=== PATIENT | female | born 1960 | race Caucasian/White ===

== ENCOUNTER → 2017-12-21 06:44 | Outpatient (CLI) | payer MEDICARE, SELFPAY ==
--- NOTE | 2017-12-21 16:56 | STRESSREP ---
Stress Test Report Pharmacologic myocardial perfusion stress test. 57-year-old lady with a history of chest pain. Stress protocol: Resting EKG demonstrates sinus bradycardia with a rate of 51 bpm. Normal intervals and noted resting blood pressure is 140/86 centimeters of mercury. 0.4 mg of regadenoson was infused per usual protocol followed Intravenous saline flush injection. Continuous EKG monitoring was performed. The maximum heart rate attained was 58 bpm which was 35% of maximum predicted heart rate the maximum workload attained was 1 metabolic equivalent. At rest there were no ST or T-wave changes noted to suggest abnormal flow reserve at peak infusion no ST or T-wave changes were noted to suggest abnormal flow reserve. The resting blood pressure is 140/86 with a final blood pressure of the same. Myocardial perfusion protocol. 14.3 mCi of technetium 99m sestamibi was injected at rest. 0.4 mg of regadenoson was infused per usual protocol. At peak infusion 44.8 mCi of technetium 99m sestamibi was injected. Stress images were obtained stress and rest images were reconstructed and compared in the short axis vertical long and horizontal long axis. Gated images were also obtained. Perfusion SPECT analysis: Review of the stress images demonstrate normal uptake of tracer noted in all areas of the myocardium the resting images similarly demonstrate normal uptake of tracer noted in all areas of the myocardium. No areas of reversibility are noted suggest ischemia no previous infarct is noted. Gated SPECT analysis: The gated ejection fraction is noted to be 65%. Normal pharmacologic myocardial perfusion stress test. Preserved ejection fraction.
== END ==
PROVIDERS: Family Provider Family Medicine; PCP Family Medicine; Visit Provider Internal Medicine Cardiovascular Disease
DX: I25.10 Atherosclerotic heart disease of native coronary artery without angina pectoris (principal)
CPT/HCPCS: 78452; 93017; A9500; A4216; J2785

== ENCOUNTER 2018-04-24 19:49 | Inpatient (IN) | payer MEDICARE, SELFPAY ==
[2018-04-24] VITALS (7 sets, daily range): BP systolic 159–216; BP diastolic 95–140; PULSE 67–89; RESP 12–44; TEMP 36.4–37.1; O2SAT 86–99; BMI 38.4
--- NOTE | 2018-04-24 20:16 | ED.RN ---
[employer] called for ekg, pulled old ekg's for
--- NOTE | 2018-04-24 20:45 | EKG12_ITS ---
Test Reason : CP Blood Pressure : / mmHG Vent. Rate : 084 BPM Atrial Rate : 084 BPM P-R Int : 148 ms QRS Dur : 104 ms QT Int : 386 ms P-R-T Axes : 050 006 054 degrees QTc Int : 456 ms Normal sinus rhythm Nonspecific ST abnormality Abnormal ECG Confirmed by ARIANA NICHOLE, ALEXIA ([id number]), loan expeditor MAGY RICHARDS ([id number]) on 04/27/2018 9:52:05 AM Referred By: JULIO Confirmed By:ALEXIA LANE MD
--- NOTE | 2018-04-24 21:15 | RAD_ITS ---
STUDY: X-RAY CHEST REASON FOR EXAM: Female, 57 years old. Shortness of breath TECHNIQUE: Single view of the chest was obtained COMPARISON: October 05, 2017 chest radiograph FINDINGS: Bilateral pulmonary edema with cardiomegaly noted. No pneumothorax. No pleural effusions aortic tortuosity.. No lung consolidation. Osseous structures demonstrate no acute abnormalities IMPRESSION: Cardiomegaly with bilateral interstitial pulmonary edema Electronically Signed: Carlos Sumner, at 21:29 EDT Tel , Service support , RAD/Chest 1 View (Portable)
[2018-04-24] MEDS: MethylPREDNISolone 125 MG/2 ML Vial IV (21:16)
[2018-04-24] MEDS: Ipratropium/Albuterol Sulfate 3 ML AMPUL.NEB INHALATION (21:17)
[2018-04-24] MEDS: Albuterol 2.5 MG/3 ML VIAL.NEB. INHALATION ×3 (21:17→23:00)
[2018-04-24 21:31] LABS: Allen Test POS; Base Excess -6 mmol/L (-2 to +2); Bicarbonate 20.3 mmol/L (22-26); Blood Gas Specimen Type ART; EPAP 6; FI02 60; IPAP 14; PO2 224 mmHG (75-100); RR 12; SITE R Radial; SO2 100 % (95-99); Time Given 2115; Total Carbon Dioxide 22 mmol/L; pCO2 41.6 mmHg (35-45)
[2018-04-24 21:40] LABS: Absolute Neutrophil Count 6.6 X10^3/uL (2.0-7.7); Basophil# 0.01 X10^3/uL; Basophil% 0.1 % (0-1); Eosinophils% 1.2 % (0-5); Hematocrit 40.3 % (37-47); Hemoglobin 14.2 g/dl (12.0-15.0); Lymphocyte % 15.2 % (19-41); Mean Corp Hgb Conc 35.2 g/gl (32-36); Mean Corpuscular Hgb 33.6 pg (27.0-32.0); Mean Corpuscular Volume 95.3 fL (81-99); Neutrophil # 6.55 X10^3/uL (2.7-7.7); Neutrophil % 76.3 % (47-70); Platelet Count 105 K/mm3 (150-450); RBC Distribution Width CV 14.9 % (11.6-14.6); RBC Distribution Width SD 52.2 fl (35.1-43.9); Red Blood Count 4.23 M/mm3 (4.2-5.4); White Blood Count 8.6 K/mm3 (4.4-11.0)
[2018-04-24 21:49] LABS: Anion Gap 11 (5-15); BUN 4 mg/dL (7-18); BUN/Creat Ratio 5.2 RATIO (10-20); Calcium,Total 8.5 mg/dL (8.5-10.1); Chloride 94 mmol/L (98-107); Creatinine, Serum 0.76 mg/dL (0.55-1.02); EST Glomerular Filtration Rate 83 mL/min (>60); Est Glom Filt Rate - Afr Amer 101 mL/min (>60); Estimated Creatinine Clearance 86.38 ml/min; Glucose 140 mg/dL (74-106); Potassium 3.6 mmol/L (3.5-5.1); Sodium Level 125 mmol/L (136-145)
[2018-04-24 21:53] LABS: POSITIVE COUNT NO; POSITIVE DIFFERENTIAL NO; POSITIVE MORPHOLOGY NO
[2018-04-24 22:25] LABS: BNP,B-Type NATRIURETIC PEPTIDE 267.1 pg/mL (0-100)
--- NOTE | 2018-04-24 22:43 | ED.RN ---
PATIENT POA CALLED IN AND UPDATED ON PATIENTS CONDITION AND ADMISSION STATUS SECONDARY CALL BACK NUMBER [phone] LAQUITA IF UNABLE TO REACH [facility]
--- NOTE | 2018-04-24 23:09 | PCM.HP.STD ---
Problem List (1) CHF (congestive heart failure) Status: Acute Qualifiers: Heart failure chronicity: unspecified (2) Respiratory distress Status: Acute (3) HTN (hypertension) Status: Chronic (4) Liver cirrhosis Status: Chronic Qualifiers: History of Present Illness Date of Admission: 04/24/18 Chief Complaint: shortness of breath The patient is a 57 year old female patient with a significant past medical history of NSTEMI/coronary artery disease, alcoholism (last beer in October), smoking 1 PPD who presents to the ER with acute shortness of breath. She presented with tachypnea and high blood pressure working hard to breath. Initial blood gas shows her to be acidotic. She is hyponatremic and BNTP is elevated. In November of 2017 she had a normal nuclear stress test with a normal ejection fraction at that time. She continues to smoke. Chest X ray shows interstitial edema and cardiomegaly. Once placed on BIPAP machine her respiratory effort improved. She will be admitted to progressive care unit for CHF exacerbation and respiratory distress. Past Medical History Past Medical History (Chronic Problems): Chronic Problems Thrombocytopenia (Chronic) Hypokalemia (Chronic) Dysphagia (Chronic) Macrocytic anemia (Chronic) HTN (hypertension) (Chronic) Alcohol abuse (Chronic) Liver cirrhosis (Chronic) Allergies aripiprazole [From Abilify] Allergy (Verified 04/24/18 20:15) Other diphenhydramine [From Benadryl] Allergy (Verified 04/24/18 20:15) Itching lithium Allergy (Verified 04/24/18 20:15) Other lorazepam [From Ativan] Allergy (Verified 04/24/18 20:15) Other risperidone [From Risperdal] Allergy (Verified 04/24/18 20:15) Swelling zolpidem [From Ambien] Allergy (Verified 04/24/18 20:15) Itching quetiapine [From Seroquel] Adverse Reaction (Verified 04/24/18 20:15) Other I GET HIGH, I GET ANXIOUS, I CAN'T SLEEP Home Medications: Ambulatory Orders Medication Instructions Recorded Multivits,Ca,Minerals/Iron/FA 1 each PO DAILY 05/06/16 [Women's Daily Formula Caplet] Paliperidone [Invega] 12 mg PO DAILY 09/22/16 Benztropine Mesylate 1 mg PO BID 01/11/18 Famotidine [Pepcid] 20 mg PO BID tablet 10/11/17 Lactulose [Chronulac] 20 gm PO TID udc 10/11/17 Potassium Chloride [K-Dur] 20 meq PO DAILY #30 tablet 10/11/17 Pristiq 50 mg PO DAILY 10/11/17 Propranolol HCl [Inderal (Beta 20 mg PO TID tablet 10/11/17 Sherwin)] Rifaximin [Xifaxan] 550 mg PO BID tablet 10/11/17 traZODone [Desyrel] 50 mg PO QHS tablet 10/11/17 Surgical History: noncontributory Psychiatric History: No pertinent psych hx [employer]ER History: No pertinent [employer] FIELD [employer]ER history Smoking Status: Current every day smoker - *Family History Maternal History Items: No pertinent history Paternal History Items: No pertinent history Review of Systems Constitutional: Denies: Chills, Fever, Weight Change HEENT: Denies: Head Aches, Sinus Congestion, Sinus Drainage Cardiovascular: Denies: Chest Pain, Palpitations Respiratory: Reports: Shortness of breath at rest. Denies: Cough, Sputum production Gastrointestinal: Denies: Abdominal Pain, Nausea, Vomiting Genitourinary: Denies: Dysuria Musculoskeletal: Denies: Joint Pain, Joint Tenderness Skin: Denies: Rash, Wounds Neurological: Denies: Numbness, Tingling, Focal weakness Psychiatric: Denies: Anxiety, Depression, Homicidal Ideations, Suicidal Ideations Hematologic/ Lymphatic: Denies: Easy Bruising, Easy Bleeding VTE Information - Inpt Only VTE Present on Admission: No VTE Mechan Device Prophylaxis: None VTE Pharm Prophylaxis ordered?: Yes Patient Problems: Active and Suspected Problems CHF (congestive heart failure) (Acute) Respiratory distress (Acute) - Physical Exam General: Alert, Oriented x3, Cooperative HEENT: Atraumatic, Normocephalic Neck: Supple Lungs: No rhonchi, No wheeze, No rales, Diminished Cardiovascular: Regular rate, Normal S1, Normal S2, No murmurs Abdomen: Bowel Sounds Present, Soft, Non Tender, Obese Extremities: Capillary Refill Less than 3 Seconds, Edema - trace lower ext edema Skin: No rashes Musculoskeletal: No Tenderness to Palpation of Joints or Extremities Neurological: Neuro grossly intact Psych/Mental Status: Normal Affect, Appropriate Vital Signs Temp Pulse Resp BP Pulse Ox 98.7 F 70 14 185/115 H 97 04/24/18 20:15 04/24/18 22:26 04/24/18 22:26 04/24/18 22:26 04/24/18 22:26 Oxygen Flow Rate (L/min) 3 Oxygen Delivery Method Bi-pap Weight: 260 lb Body Mass Index (BMI) 38.4 Laboratory Tests Past 24 Hrs 04/24/18 04/24/18 04/24/18 21:10 21:10 21:10 WBC 8.6 RBC 4.23 Hgb 14.2 Hct 40.3 MCV 95.3 MCH 33.6 H MCHC 35.2 RDW 14.9 H RDW Differential 52.2 H Plt Count 105 L MPV 10.0 Immature Gran % (Auto) 0.200 Neut % (Auto) 76.3 H Lymph % (Auto) 15.2 L Bartholomew % (Auto) 7.0 Eos % (Auto) 1.2 Baso % (Auto) 0.1 Absolute Neuts (auto) 6.6 Absolute Lymphs (auto) 1.30 Total Counted Not Reportable Specimen Type Sample Site pH Bicarbonate Actual POC Total CO2 Base Excess O2 Saturation O2 % ABG pCO2 ABG pO2 Juan Daniel Test Respiration Rate O2 Delivery Device EPAP IPAP Blood Gas Notified Whom Blood Gas Notified Time Sodium 125 L Potassium 3.6 Chloride 94 L Carbon Dioxide 20.0 L Anion Gap 11 BUN 4 L Creatinine 0.76 Estim Creat Clear Calc 86.38 Est GFR (MDRD) Af Amer 101 Est GFR (MDRD) Non-Af 83 BUN/Creatinine Ratio 5.2 L Glucose 140 H Calcium 8.5 Troponin I 0.033 B-Natriuretic Peptide 267.1 H 04/24/18 21:24 WBC RBC Hgb Hct MCV MCH MCHC RDW RDW Differential Plt Count MPV Immature Gran % (Auto) Neut % (Auto) Lymph % (Auto) Bartholomew % (Auto) Eos % (Auto) Baso % (Auto) Absolute Neuts (auto) Absolute Lymphs (auto) Total Counted Specimen Type ART Sample Site R Radial pH 7.30 L Bicarbonate Actual 20.3 L POC Total CO2 22 Base Excess -6 L O2 Saturation 100 H O2 % 60 ABG pCO2 41.6 ABG pO2 224 H Juan Daniel Test POS Respiration Rate 12 O2 Delivery Device Bi / C PAP EPAP 6 IPAP 14 Blood Gas Notified Whom ED Blood Gas Notified Time 2114 Sodium Potassium Chloride Carbon Dioxide Anion Gap BUN Creatinine Estim Creat Clear Calc Est GFR (MDRD) Af Amer Est GFR (MDRD) Non-Af BUN/Creatinine Ratio Glucose Calcium Troponin I B-Natriuretic Peptide Assessment/Plan All Active Problems CHF (congestive heart failure) (Acute) Respiratory distress (Acute) Metatarsal stress fracture of left foot (Acute) Rhabdomyolysis (Acute) Non-ST elevation NV (NSTEMI) (Acute) Hepatic encephalopathy (Acute) Chronic Problems Thrombocytopenia (Chronic) Hypokalemia (Chronic) Dysphagia (Chronic) Macrocytic anemia (Chronic) HTN (hypertension) (Chronic) Alcohol abuse (Chronic) Liver cirrhosis (Chronic) Plan - admit to progressive care unit - continue BIPAP - duoneb inh q 4 hrs prn - lasix 40mg IV BID - cycle cardiac markers - cbc,bntp, bmp in am - continue routine home medications - encourage smoking cessation - LMWH for DVT prophylaxis - consider cardiology consult in am - had echo in September and stress test in November of 2017 Code Visit Inpatient E&M: 86629 Init Hosp L3
[2018-04-24] MEDS: Furosemide 100 MG/10 ML Vial 80 MG IV (23:37)
[2018-04-24] MEDS: Nitroglycerin Oint 1 INCH PACKET TRANSDERM. (23:38)
--- NOTE | 2018-04-24 23:51 | ED.VISSUMM ---
- ER Visit Summary Date of Service: 04/24/18 Chief Complaint: Shortness of breath History of Present Illness: The patient is a 57 F presenting for evaluation secondary shortness breath. Patient has an underlying history of hypertension and smoking. Patient apparently had a relatively sudden onset of severe shortness of breath today. She states that it is associated with feelings of chest tightness. She denies that there is any sort of infectious signs or symptoms such as cough or fever associated with this. Patient presented an relative respiratory extremis, and additional history was not able to be obtained. Physical Examination: Vital signs are notable for room air pulse ox in the 70s respiratory rate 20s blood pressure 216/125. Well-nourished female visibly in some respiratory discomfort. Moist mucous membranes no JVD. Heart was regular rate and rhythm, lungs sounds showed evidence of respiratory distress with poor air movement without significant evidence of rales rhonchi or wheezes. Abdomen soft nontender. Extremities show +1 peripheral edema noted bilaterally symmetric. Skin normal color no rash. Test Results: CBC and chemistry are unremarkable, troponin is 0.03, chest x-ray shows congestive heart failure bilaterally. Emergency Department Course and Treatment: Patient presented secondary to respiratory extremis. She was placed on BiPAP in the emergency department. Patient's workup as noted above showed evidence of congestive heart failure. She was given 80 mg of Lasix as well as was placed on Nitropaste. Patient likely has an element of hypertensive emergency and heart failure. I believe she requires admission I discussed this with hospitalist. Disposition: Admission Impression: 1. Congestive heart failure 2. Hypoxic respiratory failure Critical care time 35 minutes This note was generated with [employer] dictation software. It may contain incorrect words, spelling, and punctuation that were not noted in review of the chart prior to signing ED Disposition - Plan for ED Patient: Chief Complaint: Shortness of Breath Referrals: Vikram Easton MD [Primary Care Provider] -
[2018-04-25] VITALS (27 sets, daily range): BP systolic 94–153; BP diastolic 58–104; PULSE 60–76; RESP 12–24; TEMP 36.2–37.2; O2SAT 93–100; BMI 42.5
--- NOTE | 2018-04-25 | NURSING ---
Spoke with [facility] and informed PCU is ready for admission at this time
--- NOTE | 2018-04-25 00:02 | NURSING ---
Called [facility] and asked for second troponin to be drawn prior to transfer
--- NOTE | 2018-04-25 02:10 | CPS ---
decreased O2 to 3 lpm
[2018-04-25] MEDS: Ibuprofen 200 MG Tablet 400 MG PO ×3 (02:27→15:30)
[2018-04-25 03:32] LABS: Absolute Lymphocyte Count 0.77 X10^3/ul (0.83-4.51); Absolute Neutrophil Count 7.1 X10^3/uL (2.0-7.7); Basophil# 0.01 X10^3/uL; Basophil% 0.1 % (0-1); Hematocrit 38.6 % (37-47); Hemoglobin 13.3 g/dl (12.0-15.0); Lymphocyte # 0.77 X10^3/ul (4.0); Lymphocyte % 9.6 % (19-41); Mean Corp Hgb Conc 34.5 g/gl (32-36); Mean Corpuscular Hgb 32.7 pg (27.0-32.0); Mean Corpuscular Volume 94.8 fL (81-99); Mean Platelet Vol. 9.7 fl (6.2-12.0); Monocyte# 0.14 X10^3/uL; Monocyte% 1.7 % (0-10); Neutrophil # 7.09 X10^3/uL (2.7-7.7); Neutrophil % 88.5 % (47-70); Platelet Count 87 K/mm3 (150-450); RBC Distribution Width CV 14.6 % (11.6-14.6); RBC Distribution Width SD 50.8 fl (35.1-43.9); Red Blood Count 4.07 M/mm3 (4.2-5.4)
[2018-04-25 03:35] LABS: POSITIVE COUNT NO; POSITIVE DIFFERENTIAL NO; POSITIVE MORPHOLOGY NO
[2018-04-25 03:44] LABS: Anion Gap 10 (5-15); BUN 6 mg/dL (7-18); BUN/Creat Ratio 7.8 RATIO (10-20); Calcium,Total 8.2 mg/dL (8.5-10.1); Chloride 98 mmol/L (98-107); Creatinine, Serum 0.77 mg/dL (0.55-1.02); EST Glomerular Filtration Rate 82 mL/min (>60); Est Glom Filt Rate - Afr Amer 99 mL/min (>60); Estimated Creatinine Clearance 79.33 ml/min; Glucose 196 mg/dL (74-106); Sodium Level 134 mmol/L (136-145)
[2018-04-25] MEDS: Propranolol 10 MG Tablet 20 MG PO (05:51)
--- NOTE | 2018-04-25 05:55 | RAD_ITS ---
STUDY: X-RAY CHEST REASON FOR EXAM: Female, 57 years old. Shortness of breath and dyspnea. TECHNIQUE: AP and lateral views of the chest. COMPARISON: Comparison is made with prior study dated April 24, 2018. FINDINGS: EKG electrodes are seen. Persistent mild degree of CHF although there has been moderate improvement as compared to prior study. Mild degree of increased markings at the lung bases suggestive of atelectasis. There is mild cardiac enlargement. Normal mediastinum and daniela. Normal visualized pulmonary arteries. There is atherosclerotic tortuosity of the aortic arch and descending thoracic aorta. There are diffuse degenerative changes of the visualized thoracic spine. Normal visualized ribs, clavicles, and shoulders. There is no demonstrated abnormality of the visualized soft tissue structures of the upper abdomen. RAD/Chest PA and Lateral IMPRESSION: Mild degree of residual CHF. Electronically Signed: Allen Coelho MD at 12:55 EDT Tel [phone], Service support ,
[2018-04-25] MEDS: Ipratropium/Albuterol Sulfate 3 ML AMPUL.NEB INHALATION ×4 (07:20→23:03)
[2018-04-25] MEDS: Lactulose 20 GM/30 ML UDC 15 GM PO ×2 (09:04→21:23)
[2018-04-25] MEDS: Venlafaxine XR 37.5 MG Capsule PO (09:04)
[2018-04-25] MEDS: rifAXIMin 550 MG Tablet PO ×2 (09:05→21:20)
[2018-04-25] MEDS: Furosemide 40 MG/4 ML Vial IV ×2 (09:05→17:34)
[2018-04-25] MEDS: Enoxaparin 40 MG/0.4 ML Syringe SC (09:05)
[2018-04-25] MEDS: Multivitamins,Ther W-Minerals Tablet 1 TABLET PO (09:06)
--- NOTE | 2018-04-25 10:37 | CASEMGMT ---
SEe RN CM Assessment. DC PLAN: undetermined. SW referral. -Pt has [facility] Waiver program. See assessment for details. Vasu HERNANDEZN RN ACM
--- NOTE | 2018-04-25 11:34 | PCM.PN.HOSP ---
Patient Problems: Active and Suspected Problems CHF (congestive heart failure) (Acute) Respiratory distress (Acute) Subjective: Patient is a 57-year-old female with past medical history of an STEMI and coronary artery disease, schizophrenia and alcohol abuse. She was admitted by the ED on 04/24/2018 with a complaint of acute onset shortness of breath with associated tachypnea and elevated blood pressure. She was found to be acidotic and hyponatremic with BNP slightly elevated at 267. Chest x-ray showed interstitial edema and cardiomegaly. She was admitted and managed for CHF exacerbation and hypoxemic respiratory failure due to CHF exacerbation. He was put on BiPAP after which respiratory distress improved. Seen and examined this morning. She was eating breakfast and was comfortable. She was on 3 L of oxygen and saturating well. She denied any cough or chest pain shortness of breath abdominal pain, diarrhea vomiting. Review of systems otherwise negative. Of note she had a stress test in November which was negative with an EF of 65% at that time she also had an echo and September 2017 which showed stage I diastolic dysfunction and left ventricular hypertrophy. Vitals/I&O's: Vital Signs Temp Pulse Resp BP Pulse Ox 98.6 F 62 18 124/80 H 99 04/25/18 09:00 04/25/18 11:11 04/25/18 09:00 04/25/18 09:00 04/25/18 09:00 Oxygen Flow Rate (L/min) 3 Oxygen Delivery Method Nasal Cannula Weight: 265 lb 10.512 oz Body Mass Index (BMI) 42.5 Intake and Output for Last 24 Hours 04/23/18 04/24/18 04/25/18 23:59 23:59 23:59 Intake Total 400 / 400 Output Total 3600 / 3600 Balance -3200 / -3200 General: Alert, Oriented x3, Cooperative, No apparent distress HEENT: Atraumatic, PERRLA, EOMI, Normocephalic Oral: Moist Mucosa Neck: Supple, No JVD, Negative Carotid Bruits Lungs: Clear to auscultation, Normal air movement, No rhonchi, No wheeze, No rales, - - On 3 L of oxygen by nasal cannula Cardiovascular: Regular rate, Regular Rhythm, Normal S1, Normal S2, No murmurs Abdomen: Bowel Sounds Present, Soft, Non Tender, Non-Distended, No Hepato-splenomegaly Extremities: No clubbing, No cyanosis, No edema, Capillary Refill Less than 3 Seconds Skin: No rashes, No breakdown Musculoskeletal: No Tenderness to Palpation of Joints or Extremities Lymphatic: No Cervical, Supraclavicular, or Inguinal Adenopathy Neurological: Cranial nerves II-XII grossly intact Psych/Mental Status: Normal Affect, Appropriate, Alert and oriented to time, place, person, mood and affect Laboratory Results 04/25/18 00:10: Troponin I 0.332 H 04/25/18 03:20: Troponin I 0.360 H 04/25/18 03:20: WBC 8.0, RBC 4.07 L, Hgb 13.3, Hct 38.6, MCV 94.8, MCH 32.7 H, MCHC 34.5, RDW 14.6, RDW Differential 50.8 H, Plt Count 87 L, MPV 9.7, Immature Gran % (Auto) 0.100, Neut % (Auto) 88.5 H, Lymph % (Auto) 9.6 L, [place] % (Auto) 1.7, Eos % (Auto) 0.0, Baso % (Auto) 0.1, Absolute Neuts (auto) 7.1, Absolute Lymphs (auto) 0.77 L, Total Counted Not Reportable 04/25/18 03:20: Sodium 134 L, Potassium 3.0 L, Chloride 98, Carbon Dioxide 26.0, Anion Gap 10, BUN 6 L, Creatinine 0.77, Estim Creat Clear Calc 79.33, Est GFR (MDRD) Af Amer 99, Est GFR (MDRD) Non-Af 82, BUN/Creatinine Ratio 7.8 L, Glucose 196 H, Calcium 8.2 Current Medications Albuterol/Ipratropium (Duoneb) 3 ml INHALATION Q4HWA.RT [facility] Last Admin: 04/25/18 11:08 Dose: 3 ml Cyclobenzaprine HCl (Flexeril) 10 mg PO TID PRN PRN PRN Reason: back pain Last Admin: 04/25/18 09:05 Dose: 10 mg Enoxaparin Sodium (Lovenox) 40 mg SC DAILY [facility] Last Admin: 04/25/18 09:05 Dose: 40 mg Furosemide (Lasix) 40 mg IV BIDLX [facility] Last Admin: 04/25/18 09:05 Dose: 40 mg Hydroxyzine Pamoate (Vistaril Pamoate Capsule) 100 mg PO QHS [facility] Ibuprofen (Motrin) 400 mg PO Q6H PRN PRN PRN Reason: PAIN Last Admin: 04/25/18 09:04 Dose: 400 mg Lactulose (Chronulac, Cephulac) 15 gm PO BID [facility] Last Admin: 04/25/18 09:04 Dose: 15 gm Magnesium Hydroxide (Milk Of Magnesia) 30 ml PO DAILY PRN PRN Reason: Constipation Multivitamins/Minerals ([facility] With [facility]) [facility] Last Admin: 04/25/18 09:06 Dose: 1 tablet Nicotine (Nicoderm Cq (Pbkc)) 21 mg TRANSDERM. DAILY [facility] Last Admin: 04/25/18 10:35 Dose: 21 mg Paliperidone (Invega) 12 mg PO DAILY [facility] Propranolol HCl (Inderal) 20 mg PO TID [facility] Last Admin: 04/25/18 05:51 Dose: 20 mg Rifaximin (Xifaxan) 550 mg PO BID [facility] Last Admin: 04/25/18 09:05 Dose: 550 mg Sodium Chloride () 5 - 30 ml IV UD PRN PRN Reason: SALINE FLUSH Venlafaxine HCl (Effexor Xr) 37.5 mg PO DAILY [facility] Last Admin: 04/25/18 09:04 Dose: 37.5 mg Medical Necessity - Tobacco Use Smoking Status: Current every day smoker Assessment/Plan All Active Problems CHF (congestive heart failure) (Acute) Respiratory distress (Acute) Metatarsal stress fracture of left foot (Acute) Rhabdomyolysis (Acute) Non-ST elevation [place] (NSTEMI) (Acute) Hepatic encephalopathy (Acute) 1. Acute hypoxemic respiratory failure due to CHF exacerbation SOB has improved, but she remains on 3L of oxygen by nasal canula. was on BIPAP overnight. ABG on admission showed pH of 7,30, pCO2 of 41, pO2 of 224 BNP was 267 on IV lasix 40mg bid. initial troponin was 0.033, trended up to 0360->0.362 likely due to a troponin leak. EKG showed NSR with no acute ST changes 2D echo(10/13): EF of 65% with LV hypertrophy will get cardiology consult will get 2D echo maintain oxygen to keep sPO2>92% 2. Acute diastolic CHF exacerbation EF 65%. BNP was not markedly elevated on insulin around 267. Previous echo findings as stated above. Lasix 40 mg twice daily. Fluid restriction to 1500 cc daily. Will monitor input output. 3. Elevated troponin troponin leak vs NSTEMI troponin trend as documented above. EKG showed no acute ST changes ARABELLA score: cardiology consult placed will trend troponins aspirin 81mg daily 4. Hyponatremia likely hypervolemic hypotonic hyponatremia, due to the CHF exacerbation was 125 on admission, now 134. Will monitor 5. Hypokalemia: K is 3 today. Will replace and monitor. Will check magnesium levels also 6. Schizophrenia on invega and effexor; will continue. 7. DVT prophylaxis: heparin This note was generated with [employer] dictation software. It may contain incorrect words, spelling, and punctuation that were not noted in checking the note before signing. Code Visit Inpatient E&M: 67303 [facility] Hosp L3
--- NOTE | 2018-04-25 11:38 | PN_ITS ---
Patient Problems: Active and Suspected Problems CHF (congestive heart failure) (Acute) Respiratory distress (Acute) Subjective: Patient is a 57-year-old female with past medical history of an STEMI and coronary artery disease, schizophrenia and alcohol abuse. She was admitted by the ED on 04/24/2018 with a complaint of acute onset shortness of breath with associated tachypnea and elevated blood pressure. She was found to be acidotic and hyponatremic with BNP slightly elevated at 267. Chest x-ray showed interstitial edema and cardiomegaly. She was admitted and managed for CHF exacerbation and hypoxemic respiratory failure due to CHF exacerbation. He was put on BiPAP after which respiratory distress improved. Seen and examined this morning. She was eating breakfast and was comfortable. She was on 3 L of oxygen and saturating well. She denied any cough or chest pain shortness of breath abdominal pain, diarrhea vomiting. Review of systems otherwise negative. Of note she had a stress test in November which was negative with an EF of 65% at that time she also had an echo and September 2017 which showed stage I diastolic dysfunction and left ventricular hypertrophy. Vitals/I&O's: Vital Signs Temp Pulse Resp BP Pulse Ox 98.6 F 62 18 124/80 H 99 04/25/18 09:00 04/25/18 11:11 04/25/18 09:00 04/25/18 09:00 04/25/18 09:00 Oxygen Flow Rate (L/min) 3 Oxygen Delivery Method Nasal Cannula Weight: 265 lb 10.512 oz Body Mass Index (BMI) 42.5 Intake and Output for Last 24 Hours 04/23/18 04/24/18 04/25/18 23:59 23:59 23:59 Intake Total 400 / 400 Output Total 3600 / 3600 Balance -3200 / -3200 General: Alert, Oriented x3, Cooperative, No apparent distress HEENT: Atraumatic, PERRLA, EOMI, Normocephalic Oral: Moist Mucosa Neck: Supple, No JVD, Negative Carotid Bruits Lungs: Clear to auscultation, Normal air movement, No rhonchi, No wheeze, No rales, - - On 3 L of oxygen by nasal cannula Cardiovascular: Regular rate, Regular Rhythm, Normal S1, Normal S2, No murmurs Abdomen: Bowel Sounds Present, Soft, Non Tender, Non-Distended, No Hepato- splenomegaly Extremities: No clubbing, No cyanosis, No edema, Capillary Refill Less than 3 Seconds Skin: No rashes, No breakdown Musculoskeletal: No Tenderness to Palpation of Joints or Extremities Lymphatic: No Cervical, Supraclavicular, or Inguinal Adenopathy Neurological: Cranial nerves II-XII grossly intact Psych/Mental Status: Normal Affect, Appropriate, Alert and oriented to time, place, person, mood and affect Laboratory Results 04/25/18 00:10: Troponin I 0.332 H 04/25/18 03:20: Troponin I 0.360 H 04/25/18 03:20: WBC 8.0, RBC 4.07 L, Hgb 13.3, Hct 38.6, MCV 94.8, MCH 32.7 H, MCHC 34.5, RDW 14.6, RDW Differential 50.8 H, Plt Count 87 L, MPV 9.7, Immature Gran % (Auto) 0.100, Neut % (Auto) 88.5 H, Lymph % (Auto) 9.6 L, [place] % (Auto) 1.7, Eos % (Auto) 0.0, Baso % (Auto) 0.1, Absolute Neuts (auto) 7.1, Absolute Lymphs (auto) 0.77 L, Total Counted Not Reportable 04/25/18 03:20: Sodium 134 L, Potassium 3.0 L, Chloride 98, Carbon Dioxide 26.0 , Anion Gap 10, BUN 6 L, Creatinine 0.77, Estim Creat Clear Calc 79.33, Est GFR (MDRD) Af Amer 99, Est GFR (MDRD) Non-Af 82, BUN/Creatinine Ratio 7.8 L, Glucose 196 H, Calcium 8.2 Current Medications Albuterol/Ipratropium (Duoneb) 3 ml INHALATION Q4HWA.RT [facility] Last Admin: 04/25/18 11:08 Dose: 3 ml Cyclobenzaprine HCl (Flexeril) 10 mg PO TID PRN PRN PRN Reason: back pain Last Admin: 04/25/18 09:05 Dose: 10 mg Enoxaparin Sodium (Lovenox) 40 mg SC DAILY [facility] Last Admin: 04/25/18 09:05 Dose: 40 mg Furosemide (Lasix) 40 mg IV BIDLX [facility] Last Admin: 04/25/18 09:05 Dose: 40 mg Hydroxyzine Pamoate (Vistaril Pamoate Capsule) 100 mg PO QHS [facility] Ibuprofen (Motrin) 400 mg PO Q6H PRN PRN PRN Reason: PAIN Last Admin: 04/25/18 09:04 Dose: 400 mg Lactulose (Chronulac, Cephulac) 15 gm PO BID [facility] Last Admin: 04/25/18 09:04 Dose: 15 gm Magnesium Hydroxide (Milk Of Magnesia) 30 ml PO DAILY PRN PRN Reason: Constipation Multivitamins/Minerals (Multivitamin With Minerals) 1 tablet PO DAILYCM [facility] Last Admin: 04/25/18 09:06 Dose: 1 tablet Nicotine (Nicoderm Cq (Pbkc)) 21 mg TRANSDERM. DAILY [facility] Last Admin: 04/25/18 10:35 Dose: 21 mg Paliperidone (Invega) 12 mg PO DAILY [facility] Propranolol HCl (Inderal) 20 mg PO TID [facility] Last Admin: 04/25/18 05:51 Dose: 20 mg Rifaximin (Xifaxan) 550 mg PO BID [facility] Last Admin: 04/25/18 09:05 Dose: 550 mg Sodium Chloride () 5 - 30 ml IV UD PRN PRN Reason: SALINE FLUSH Venlafaxine HCl (Effexor Xr) 37.5 mg PO DAILY [facility] Last Admin: 04/25/18 09:04 Dose: 37.5 mg Medical Necessity - Tobacco Use Smoking Status: Current every day smoker Assessment/Plan All Active Problems CHF (congestive heart failure) (Acute) Respiratory distress (Acute) Metatarsal stress fracture of left foot (Acute) Rhabdomyolysis (Acute) Non-ST elevation [place] (NSTEMI) (Acute) Hepatic encephalopathy (Acute) 1. Acute hypoxemic respiratory failure due to CHF exacerbation * SOB has improved, but she remains on 3L of oxygen by nasal canula. * was on BIPAP overnight. * ABG on admission showed pH of 7,30, pCO2 of 41, pO2 of 224 * BNP was 267 * on IV lasix 40mg bid. * initial troponin was 0.033, trended up to 0360->0.362 * likely due to a troponin leak. EKG showed NSR with no acute ST changes * 2D echo(10/13): EF of 65% with LV hypertrophy * will get cardiology consult * will get 2D echo * maintain oxygen to keep sPO2>92% * 2. Acute diastolic CHF exacerbation * EF 65%. BNP was not markedly elevated on insulin around 267. * Previous echo findings as stated above. * Lasix 40 mg twice daily. * Fluid restriction to 1500 cc daily. * Will monitor input output. * 3. Elevated troponin * troponin leak vs NSTEMI * troponin trend as documented above. * EKG showed no acute ST changes * ARABELLA score: * cardiology consult placed * will trend troponins * aspirin 81mg daily 4. Hyponatremia * likely hypervolemic hypotonic hyponatremia, due to the CHF exacerbation * was 125 on admission, now 134. * Will monitor * 5. Hypokalemia: K is 3 today. Will replace and monitor. Will check magnesium levels also 6. Schizophrenia * on invega and effexor; will continue. * 7. DVT prophylaxis: heparin This note was generated with [email or web address] software. It may contain incorrect words, spelling, and punctuation that were not noted in checking the note before signing. Code Visit Inpatient E&M: 52753 Subs Hosp L3
--- NOTE | 2018-04-25 12:02 | ECHOD_ITS ---
Reason For Study: CHF Procedure This was a 2D Doppler, Color Flow transthoracic echocardiogram. The exam was of fair technical quality due to body habitus. Exam performed portable in patient room. Left Ventricle Normal LV size. Left ventricular systolic function is normal. The estimated ejection fraction is 70 %. There is evidence of diastolic dysfunction. Right Ventricle Normal RV size. Normal systolic function. Atria The left atrium is mildly enlarged. The right atrium is mildly enlarged. No doppler evidence for ASD. Mitral Valve There is no mitral annular calcification. Normal mitral valve. Mild (1+) eccentric mitral valve insufficiency. Tricuspid Valve Normal tricuspid valve. Trivial tricuspid valve insufficiency. Right ventricular systolic pressure estimated to be 37 mmHg. Aortic Valve The aortic valve is not well visualized. Trivial aortic valve insufficiency. Pulmonic Valve The pulmonic valve is not well visualized. Trivial pulmonic valve insufficiency. Great Vessels Normal sized aortic root. Pericardium/Pleural No pericardial effusion. MMode/2D Measurements & Calculations LVIDd: 5.0 cm IVSd: 1.6 cm LVOT diam: 2.0 cm LVIDs: 2.9 cm LVPWd: 1.4 cm LVOT area: 3.2 cm2 RVDd: 3.0 cm FS: 43.0 % Ao root diam: 3.2 cm LAV(MOD-bp): 81.0 ml LVAd ap4: 33.6 cm2 LA dimension: 4.1 cm LAV(MOD-bp) Indexed: 35.6 ml/m2 EDV(MOD-sp4): 120.3 ml LAV(MOD-sp2): 102.9 ml EDV(sp4-el): 127.2 ml LAV(MOD-sp4): 64.0 ml LVAs ap4: 16.4 cm2 ESV(MOD-sp4): 40.1 ml ESV(sp4-el): 40.7 ml EF(MOD-sp4): 66.7 % EF(sp4-el): 68.0 % SV(MOD-sp4): 80.2 ml SV(sp4-el): 86.5 ml LA A4 area: 21.9 cm2 RA A4 area: 21.1 cm2 Time Measurements MV dec time: 0.32 sec Doppler Measurements & Calculations MV E max binh: 96.1 cm/sec Lat Peak E' Binh: 8.3 cm/sec Med Peak E' Binh: 5.9 cm/sec MV A max binh: 84.8 cm/sec E/E' lat: 11.5 E/E' med: 16.3 MV E/A: 1.1 Ao V2 max: 221.4 cm/sec LV V1 max: 184.0 cm/sec PA V2 max: 160.6 cm/sec Ao max P.6 mmHg LV V1 max P.5 mmHg CATRACHITO(V,D): 2.6 cm2 TR max binh: 290.5 cm/sec TR max P.8 mmHg Interpretation Summary Left ventricular systolic function is normal. The estimated ejection fraction is 70 %. The left atrium is mildly enlarged. The right atrium is mildly enlarged. Mild (1+) eccentric mitral valve insufficiency. Trivial tricuspid valve insufficiency. Trivial aortic valve insufficiency. Trivial pulmonic valve insufficiency. Right ventricular systolic pressure estimated to be 37 mmHg. There is evidence of diastolic dysfunction. Ordering Physician: Melinda Quinn Referring Physician: RODGER HODGES Performed By: Lo Fair RDCS
[2018-04-25] MEDS: Paliperidone 6 MG Tablet 12 MG PO (12:10)
[2018-04-25] MEDS: Aspirin 81 MG TAB.CHEW PO (12:10)
--- NOTE | 2018-04-25 12:13 | EKG12_ITS ---
Test Reason : ARRYTH Blood Pressure : / mmHG Vent. Rate : 069 BPM Atrial Rate : 069 BPM P-R Int : 138 ms QRS Dur : 096 ms QT Int : 562 ms P-R-T Axes : 043 014 039 degrees QTc Int : 602 ms Normal sinus rhythm Prolonged QT Abnormal ECG Confirmed by ARIANA NICHOLE, ALEXIA ([id number]), dictionary editor MAGY RICHARDS ([id number] on 05/01/2018 4:02:34 PM Referred By: Jennifer CROCKETT Confirmed By:ALEXIA LANE MD
[2018-04-25 13:46] LABS: Magnesium 1.7 mg/dL (1.6-2.6)
--- NOTE | 2018-04-25 13:51 | CASEMGMT ---
Social Work Received referral from RN RADHA. SW attempted to meet with pt. Pt sleeping soundly and does not awake to name being called. SW will visit later as time allows. DAVID Zafar
[2018-04-25] MEDS: Lisinopril 5 MG Tablet PO (14:57)
--- NOTE | 2018-04-25 17:09 | PCM.CONS.C ---
Problem List (1) Abnormal cardiac enzyme level Status: Acute (2) CHF (congestive heart failure) Status: Acute Qualifiers: Heart failure chronicity: chronic (3) QT prolongation Status: Acute (4) HTN (hypertension) Status: Chronic Reason for Consult Date of Consultation: 04/25/18 History of Present Illness: The patient is a 57 year old white female who is referred for evaluation of abnormal troponin I levels and acute on chronic diastolic CHF superimposed upon a history of underlying possible hepatitis B, hepatic cirrhosis, alcohol abuse, tobacco abuse, previous illicit drug use, and obesity. The patient states that she noted yesterday that she was having more difficulty breathing. She noted she had to be up and moving around in order to breathe as she cannot breathe comfortably sitting or lying down. She subsequently summoned help so that she could be brought to the hospital for further evaluation and care. She was admitted for concerns of underlying congestive heart failure. She required respiratory support with O2/BiPAP. She subsequently was treated medically and was able to be on O2 support with nasal cannula. During this time she has had cardiac enzymes performed which have been indeterminate. Her ECG demonstrated sinus rhythm with a follow-up ECG demonstrating sinus rhythm with prolonged QT interval. A chest x-ray was performed which suggested an element of CHF. She denied chest discomfort other than that associated with her concern of shortness of breath and dyspnea. She states she has chronic back discomfort. She has denied any associated nausea, emesis, or diaphoretic spells. There was no loss of consciousness. [] Past Medical History Allergies/Adverse Reactions: Allergies aripiprazole [From Abilify] Allergy (Verified 04/24/18 20:15) Other diphenhydramine [From Benadryl] Allergy (Verified 04/24/18 20:15) Itching lithium Allergy (Verified 04/24/18 20:15) Other lorazepam [From Ativan] Allergy (Verified 04/24/18 20:15) Other risperidone [From Risperdal] Allergy (Verified 04/24/18 20:15) Swelling zolpidem [From Ambien] Allergy (Verified 04/24/18 20:15) Itching quetiapine [From Seroquel] Adverse Reaction (Verified 04/24/18 20:15) Other I GET HIGH, I GET ANXIOUS, I CAN'T SLEEP Home Medications: Ambulatory Orders Medication Instructions Recorded Multivits,Ca,Minerals/Iron/FA 1 each PO DAILY 05/06/16 [Women's Daily Formula Caplet] Paliperidone [Invega] 12 mg PO DAILY 09/22/16 Pristiq 50 mg PO DAILY 10/11/17 Rifaximin [Xifaxan] 550 mg PO BID tablet 10/11/17 Cyclobenzaprine [Flexeril] 10 mg PO TID PRN PRN 04/25/18 Hydroxyzine Pamoate [Vistaril] 100 mg PO QHS 04/25/18 Ibuprofen 200 mg PO PRN PRN 04/25/18 Lactulose [Lactulose] 15 mg PO BID 04/25/18 Propranolol HCl [Propranolol HCl 60 mg PO DAILY 04/25/18 ER] Past Medical History (Chronic Problems): Chronic Problems Thrombocytopenia (Chronic) Hypokalemia (Chronic) Dysphagia (Chronic) Macrocytic anemia (Chronic) HTN (hypertension) (Chronic) Alcohol abuse (Chronic) Liver cirrhosis (Chronic) Surgical History: noncontributory Psychiatric History: No pertinent psych hx 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 Denies: Chest Discomfort, Peripheral Edema, Palpitations, Lightheadedness, Dizziness, Near Syncope, Syncope Respiratory: Reports: Shortness of Breath. Denies: Cough, Sputum Production, Hemoptysis Gastrointestinal: Denies: Hematemesis, Hematochezia, Melena Genitourinary: Denies: Dysuria, Hematuria Skin: Denies: Rash Subjectve: This is a 57-year-old obese white female who appears to be resting comfortably at the moment in no acute distress Objective: Vital Signs Temp Pulse Resp BP Pulse Ox 98.9 F 64 18 108/75 96 04/25/18 14:16 04/25/18 15:04 04/25/18 14:16 04/25/18 14:57 04/25/18 14:16 Oxygen Flow Rate (L/min) 2 Oxygen Delivery Method Nasal Cannula Weight: 265 lb 10.512 oz Body Mass Index (BMI) 42.5 Intake and Output for Last 24 Hours 04/23/18 04/24/18 04/25/18 23:59 23:59 23:59 Intake Total 760 / 760 Output Total 5200 / 5200 Balance -4440 / -4440 General: Awake, Alert, Oriented x 3, No Acute Distress, Obese HEENT: Atraumatic, Normocephalic, PERRL, EOMI, Sclera Non Icteric Oral: Moist Mucosa Neck: Supple, Good ROM, No JVD Lungs: Diminished Josemanuel Bases Cardiovascular: Regular Rhythm, Normal S1, Normal S2 Vascular: No Carotid Bruits Abdomen: Bowel Sounds Present, Soft, Non Tender Extremities: No Cyanosis, No Clubbing, Trace RLE Edema, Trace LLE Edema 04/25/18 00:10: Troponin I 0.332 H 04/25/18 03:20: Troponin I 0.360 H 04/25/18 03:20: WBC 8.0, RBC 4.07 L, Hgb 13.3, Hct 38.6, MCV 94.8, MCH 32.7 H, MCHC 34.5, RDW 14.6, RDW Differential 50.8 H, Plt Count 87 L, MPV 9.7, Immature Gran % (Auto) 0.100, Neut % (Auto) 88.5 H, Lymph % (Auto) 9.6 L, [place] % (Auto) 1.7, Eos % (Auto) 0.0, Baso % (Auto) 0.1, Absolute Neuts (auto) 7.1, Total Counted Not Reportable 04/25/18 03:20: Sodium 134 L, Potassium 3.0 L, Chloride 98, Carbon Dioxide 26.0, Anion Gap 10, BUN 6 L, Creatinine 0.77, Est GFR (MDRD) Af Amer 99, Est GFR (MDRD) Non-Af 82, BUN/Creatinine Ratio 7.8 L, Glucose 196 H, Calcium 8.2 L 04/25/18 11:55: Troponin I 0.183 H 04/25/18 11:55: Magnesium 1.7 Rhythm: Sinus rhythm EKG: As noted above ECHO: 04/25/2018 Interpretation Summary Left ventricular systolic function is normal. The estimated ejection fraction is 70 %. The left atrium is mildly enlarged. The right atrium is mildly enlarged. Mild (1+) eccentric mitral valve insufficiency. Trivial tricuspid valve insufficiency. Trivial aortic valve insufficiency. Trivial pulmonic valve insufficiency. Right ventricular systolic pressure estimated to be 37 mmHg. There is evidence of diastolic dysfunction. Stress Test: Pharmacologic stress nuclear imaging study: 12/21/2017: Reported as normal myocardial perfusion with a reported LVEF of 65% CXR: As noted above: Please see official report Assessment/Plan 1. Abnormal troponin I level The patient does have an abnormal troponin level. It is unclear whether this represents a true acute coronary syndrome event or a type II event from supply demand mismatch. Her troponin I levels are being followed. Her ECG will be followed. Her echocardiogram does not appear to suggest left ventricular regional wall motion abnormalities. She may require further evaluation with diagnostic cardiac catheterization to define her coronary anatomy for additional diagnostic procedures and/or the need for additional therapy such as coronary artery revascularization therapy. In the interim she will continue medical management as deemed appropriate. This would include agents such as aspirin, antiplatelet therapy, nitrates as needed, beta-blockers, lipid-lowering agents, anticoagulants, etc. 2. CHF: Acute on chronic diastolic At the present time she appears to be symptomatically improved compared to admission. She will need to continue medical management. She will also be considered for further evaluation of her cardiovascular status with a cardiac catheterization. 3. QT prolongation The patient's QT interval appears to be prolonged. This may be related to some of her medications. Thus it would be reasonable to consider discontinuation of her medications that may contribute to QT prolongation. Also it is prudent to correct her electrolytes. 4. Hypertension The patient does have history of hypertension. She will need to continue medical management for this. Comment: The above was discussed and reviewed with the patient. The patient's case was also discussed with Dr. Schmid who has previously evaluated the patient from a cardiovascular standpoint. This note was generated with SquareTradeation software. It may contain incorrect words, spelling, and punctuation that were not noted in checking the note before signing.
[2018-04-25] MEDS: 0.9% NaCl Peripheral Flush Adult/Peds IV (17:34)
--- NOTE | 2018-04-25 21:05 | NURSING ---
Heart cath teaching at this time. The patient does not want to watch the video on the ipad.
[2018-04-25] MEDS: hydrOXYzine PAM 25 MG Capsule 100 MG PO (21:20)
[2018-04-26] VITALS (24 sets, daily range): BP systolic 111–161; BP diastolic 56–96; PULSE 49–71; RESP 16–20; TEMP 36.3–37; O2SAT 90–99
[2018-04-26] MEDS: MELATONIN 10 MG TABLET PO ×2 (00:20→22:13)
[2018-04-26 05:23] LABS: Absolute Lymphocyte Count 2.19 X10^3/ul (0.83-4.51); Absolute Neutrophil Count 9.7 X10^3/uL (2.0-7.7); Basophil# 0.01 X10^3/uL; Basophil% 0.1 % (0-1); Eosinophil# 0.06 X10^3/uL; Eosinophils% 0.5 % (0-5); Hematocrit 34.7 % (37-47); Hemoglobin 12.6 g/dl (12.0-15.0); Lymphocyte # 2.19 X10^3/ul (4.0); Lymphocyte % 17.1 % (19-41); Mean Corp Hgb Conc 36.3 g/gl (32-36); Mean Corpuscular Hgb 34.4 pg (27.0-32.0); Mean Corpuscular Volume 94.8 fL (81-99); Mean Platelet Vol. 10.1 fl (6.2-12.0); Monocyte% 6.2 % (0-10); Neutrophil # 9.73 X10^3/uL (2.7-7.7); Neutrophil % 75.8 % (47-70); Platelet Count 98 K/mm3 (150-450); RBC Distribution Width CV 15.6 % (11.6-14.6); RBC Distribution Width SD 51.5 fl (35.1-43.9); Red Blood Count 3.66 M/mm3 (4.2-5.4); White Blood Count 12.8 K/mm3 (4.4-11.0)
[2018-04-26 05:24] LABS: POSITIVE COUNT NO; POSITIVE DIFFERENTIAL NO; POSITIVE MORPHOLOGY NO
[2018-04-26 05:35] LABS: International Normalized Ratio 1.3; Prothrombin Time (Protime)PT. 16.3 SECONDS (11.7-14.9)
[2018-04-26 05:47] LABS: AST(SGOT) 37 U/L (15-37); Alanine Aminotransfer ALT/SGPT 32 U/L (13-56); Albumin, Serum 2.7 g/dL (3.2-5.0); Alkaline Phosphatase 120 U/L (45-117); Anion Gap 6 (5-15); BUN 13 mg/dL (7-18); BUN/Creat Ratio 19.3 RATIO (10-20); Bilirubin, Direct 0.34 mg/dL (0.00-0.30); Calcium,Total 8.3 mg/dL (8.5-10.1); Chloride 108 mmol/L (98-107); Cholesterol 131 mg/dL (200); Creatinine, Serum 0.68 mg/dL (0.55-1.02); EST Glomerular Filtration Rate 96 mL/min (>60); Est Glom Filt Rate - Afr Amer 116 mL/min (>60); Estimated Creatinine Clearance 89.83 ml/min; Globulin 3.8 g/dL (2.2-4.2); Glucose 70 mg/dL (74-106); High Density Lipoprotein 31 mg/dL; Potassium 3.9 mmol/L (3.5-5.1); Protein, Total 6.5 g/dL (6.4-8.2); Sodium Level 145 mmol/L (136-145); Triglycerides 64 mg/dL; Very Low Density Lipoprotein 13 mg/dL (5-40)
--- NOTE | 2018-04-26 05:55 | EKG12_ITS ---
Test Reason : AM EKG Blood Pressure : / mmHG Vent. Rate : 060 BPM Atrial Rate : 060 BPM P-R Int : 118 ms QRS Dur : 098 ms QT Int : 544 ms P-R-T Axes : 021 023 022 degrees QTc Int : 544 ms Normal sinus rhythm Prolonged QT Abnormal ECG Confirmed by ARIANA NICHOLE, ALEXIA ([id number]), web editor MAGY RICHARDS ([id number] on 05/01/2018 3:56:07 PM Referred By: GUY Confirmed By:ALEXIA LANE MD
[2018-04-26] MEDS: Aspirin 81 MG TAB.CHEW PO (06:43)
[2018-04-26] MEDS: Lisinopril 5 MG Tablet PO (06:43)
[2018-04-26] MEDS: Propranolol LA 60 MG Capsule PO (06:43)
[2018-04-26 07:43] LABS: Mucous, Urine 0 SEEN /hpf (<or=2+); Red Blood Cells-Urine 0 SEEN /hpf (0-5)
[2018-04-26 07:47] LABS: Color, Urine Yellow (Yellow); Glucose, Dipstick Normal (Normal); Ketone-Dipstick Negative (Negative); Leukocyte Esterase-Dipstick 500 /ul (Negative); Nitrite-Dipstick Positive (Negative); Occult Blood-Urine 10 /ul (Negative); Protein-Dipstick Negative (Negative); Urine Bilirubin Dipstick Negative (Negative); Urine Clarity Clear (Clear); Urine Urobilinogen Normal (Normal)
[2018-04-26] MEDS: Ipratropium/Albuterol Sulfate 3 ML AMPUL.NEB INHALATION ×3 (10:11→19:27)
--- NOTE | 2018-04-26 10:41 | CASEMGMT ---
Addendum entered by Aaliyah Gracia 04/26/18 13:29: Pt with concerns about Amanda, sister/caregiver, bringing meds to her home. With pt permission, phone call placed to Amanda to discuss. Amanda states that pt has had an evaluation and pt is not taking her medications correctly and someone needs to administer meds to pt to assure she takes them. The [facility] program would not be able to monitor if pt does take meds. Amanda confirmed that she or Estrella, pt other aid, have been administrating meds and will continue to do this. Amanda reports no need for med set up as pt is not allowed to keep the meds at home. Amanda with concerns that pt does not currently have a home health aid. SW inquired if pt can care for self and Amanda states she may be able to but she does not. Amanda does not feel pt should rely on her neighbor, Bryson, to assist her. Phone call to [facility] and spoke with Trice, personnel officer porter sample case. LIAM requested someone else set up home health services as Gabby Car is out of the office. Trice states that another Nuclear Worker Technician will visit pt as soon as she is released from hospital to discuss needs and services. SW will notify [facility] when d/c date is determined. VM left for Gabby Car informing her of [facility] program and providing number if this would benefit pt at home and to contact [facility] should they decide to start this program with pt. Also spoke with Trice at [facility] and gave the same information. [facility] notified to place program on hold. SW will remain available should further needs arise. DAVID Zafar Original Note: Social Work Met with pt in room and introduced self to pt. Pt lives at home alone. Pt reports she does have services through the [facility] program and Gabby Car is her porter sample case. Pt reports she can provide ADLs independently. She does not drive nor cook. She receives 14 mom's meals each week and her neighbor will often help her with preparing breakfast. Pt reports that Amanda Meadows was her aid and now Estrella is her aid and she does not like or want either of them. Pt reports Gabby Car plans to visit pt on May 02 to discuss home care needs. Pt complaining that Amanda Meadows has her phone and will not bring it back. Per the pt, Reggie Abdiel is the pt payee and POA. Pt plans to return home upon d/c and states her neighbor/friend will stay with her if needed. Phone call placed to Gabby Car to discuss pt care. Gabby is out of the office until May 01. LIAM spoke with Jerod at [facility]. He relayed Gabby's notes which indicate that Gabby is well aware of pt home situation and has been working with the pt to resolve family issues and home health aides. Jerod confirmed that pt does recieve 14 moms meals per week and this will be restarted when pt leaves the hospital. Pt expressing concerns about medications. LIAM offered to pt the [facility] as they can assist with medication set up and management. Pt is very happy with this idea and would like it to begin as soon as she is released from the hospital. Referral made to [facility] and they will contact pt on Tuesday. Pt made aware. LIAM will notify [facility] when pt is discharged. DAVID Zafar
--- NOTE | 2018-04-26 10:52 | PN_ITS ---
<Jaya Perez - Last Filed: 04/26/18 10:43> Patient Problems: Active and Suspected Problems CHF (congestive heart failure) (Acute) Respiratory distress (Acute) Abnormal cardiac enzyme level (Acute) QT prolongation (Acute) Subjective: Pt resting comfortably in bed. NAD. No CP. No SOB today. Off O2. No cough. No fever or chills. No abd pain. No dysuria, however is having difficulty completely emptying her bladder - UA c/w uti + WBC. Hx of frequent UTIs. - Physical Exam General: Alert, Oriented x3, Cooperative HEENT: Atraumatic, PERRLA, EOMI, Normocephalic Neck: Supple, No JVD, Negative Carotid Bruits Lungs: Diminished Cardiovascular: Regular rate, No murmurs Abdomen: Bowel Sounds Present, Soft, Non Tender Extremities: No edema, Capillary Refill Less than 3 Seconds Skin: No rashes, No breakdown Musculoskeletal: No Tenderness to Palpation of Joints or Extremities Neurological: Cranial nerves II-XII grossly intact Psych/Mental Status: Normal Affect, Appropriate, Alert and oriented to time, place, person, mood and affect Vital Signs Temp Pulse Resp BP Pulse Ox 98.2 F 57 L 20 H 119/73 90 04/26/18 06:40 04/26/18 07:10 04/26/18 06:40 04/26/18 06:40 04/26/18 07:27 Oxygen Flow Rate (L/min) 2 Oxygen Delivery Method Room Air Weight: 261 lb 3.964 oz Body Mass Index (BMI) 42.5 Intake and Output for Last 24 Hours 04/24/18 04/25/18 04/26/18 23:59 23:59 23:59 Intake Total 1160 / 1160 1040 / 1040 Output Total 6200 / 6200 3450 / 3450 Balance -5040 / -5040 -2410 / -2410 Laboratory Tests Past 24 Hrs 04/25/18 04/25/18 04/26/18 11:55 11:55 05:10 WBC RBC Hgb Hct MCV MCH MCHC RDW RDW Differential Plt Count MPV Immature Gran % (Auto) Neut % (Auto) Lymph % (Auto) [place] % (Auto) Eos % (Auto) Baso % (Auto) Absolute Neuts (auto) Absolute Lymphs (auto) Total Counted PT INR APTT Sodium 145 Potassium 3.9 Chloride 108 H Carbon Dioxide 31.0 Anion Gap 6 BUN 13 Creatinine 0.68 Estim Creat Clear Calc 89.83 Est GFR (MDRD) Af Amer 116 Est GFR (MDRD) Non-Af 96 BUN/Creatinine Ratio 19.3 Glucose 70 L Calcium 8.3 L Magnesium 1.7 Total Bilirubin 0.80 Direct Bilirubin 0.34 H AST 37 ALT 32 Alkaline Phosphatase 120 H Troponin I 0.183 H Total Protein 6.5 Albumin 2.7 L Globulin 3.8 Triglycerides 64 Cholesterol 131 LDL Cholesterol 87 VLDL Cholesterol 13 HDL Cholesterol 31 L Urine Color Urine Clarity Urine pH Ur Specific [place] Urine Protein Urine Glucose (UA) Urine Ketones Urine Occult Blood Urine Nitrite Urine Bilirubin Urine Urobilinogen Ur Leukocyte Esterase Urine RBC Urine WBC Ur Squamous Epith Cells Urine Bacteria Urine Mucus 04/26/18 04/26/18 04/26/18 05:10 05:10 07:35 WBC 12.8 H RBC 3.66 L Hgb 12.6 Hct 34.7 L MCV 94.8 MCH 34.4 H MCHC 36.3 H RDW 15.6 H RDW Differential 51.5 H Plt Count 98 L MPV 10.1 Immature Gran % (Auto) 0.300 Neut % (Auto) 75.8 H Lymph % (Auto) 17.1 L [place] % (Auto) 6.2 Eos % (Auto) 0.5 Baso % (Auto) 0.1 Absolute Neuts (auto) 9.7 H Absolute Lymphs (auto) 2.19 Total Counted Not Reportable PT 16.3 H INR 1.3 APTT 36.0 Sodium Potassium Chloride Carbon Dioxide Anion Gap BUN Creatinine Estim Creat Clear Calc Est GFR (MDRD) Af Amer Est GFR (MDRD) Non-Af BUN/Creatinine Ratio Glucose Calcium Magnesium Total Bilirubin Direct Bilirubin AST ALT Alkaline Phosphatase Troponin I Total Protein Albumin Globulin Triglycerides Cholesterol LDL Cholesterol VLDL Cholesterol HDL Cholesterol Urine Color Yellow Urine Clarity Clear Urine pH 7.0 Ur Specific [place] 1.010 Urine Protein Negative Urine Glucose (UA) Normal Urine Ketones Negative Urine Occult Blood 10 H Urine Nitrite Positive H Urine Bilirubin Negative Urine Urobilinogen Normal Ur Leukocyte Esterase 500 H Urine RBC Pending Urine WBC Pending Ur Squamous Epith Cells Pending Urine Bacteria Pending Urine Mucus Pending Medical Necessity - Tobacco Use Smoking Status: Current every day smoker Assessment/Plan All Active Problems CHF (congestive heart failure) (Acute) Respiratory distress (Acute) Abnormal cardiac enzyme level (Acute) QT prolongation (Acute) Metatarsal stress fracture of left foot (Acute) Rhabdomyolysis (Acute) Non-ST elevation MS (NSTEMI) (Acute) Hepatic encephalopathy (Acute) 1. Acute hypoxic resp failure 2/2 Acute diastolic CHF exacerbation - improved. Off O2. Lasix IV 40 BID, duonebs, zina, not on BB - pulse is low normal currently. Dr. Salinas following. BNP 267.1 on arrival. 2. UTI - UA +, difficulty emptying, elevated wbc. Start cipro. 2. Elevated troponin - heart cath today. 3. Hyponatremia 2/2 volume overload from CHF, resolved 4. Hypokalemia resolved 5. Cirrhosis 2/2 Alcohol abuse - on lactulose, rifaximin 6. Nicotine abuse - on patch. Smoked 1 ppd whole life. failed to quit multiple times. 7. Hyperglycemia - check a1c. 8. Schizophrenia - continue home meds DC planning: Return to [facility]. DVT ppx: SCDs This patient was seen by Jaya Perez PA-C under the supervision of Dr. Quinn <Melinda Quinn - Last Filed: 04/26/18 14:38> - Physical Exam Vital Signs Temp Pulse Resp BP Pulse Ox 97.9 F 52 L 20 H 138/80 H 93 04/26/18 12:20 04/26/18 12:20 04/26/18 12:20 04/26/18 12:20 04/26/18 12:20 Oxygen Flow Rate (L/min) 2 Oxygen Delivery Method Room Air Weight: 261 lb 3.964 oz Body Mass Index (BMI) 42.5 Intake and Output for Last 24 Hours 04/24/18 04/25/18 04/26/18 23:59 23:59 23:59 Intake Total 1160 / 1160 1520 / 1520 Output Total 6200 / 6200 3950 / 3950 Balance -5040 / -5040 -2430 / -2430 Laboratory Tests Past 24 Hrs 04/26/18 04/26/18 04/26/18 05:10 05:10 05:10 WBC 12.8 H RBC 3.66 L Hgb 12.6 Hct 34.7 L MCV 94.8 MCH 34.4 H MCHC 36.3 H RDW 15.6 H RDW Differential 51.5 H Plt Count 98 L MPV 10.1 Immature Gran % (Auto) 0.300 Neut % (Auto) 75.8 H Lymph % (Auto) 17.1 L [place] % (Auto) 6.2 Eos % (Auto) 0.5 Baso % (Auto) 0.1 Absolute Neuts (auto) 9.7 H Absolute Lymphs (auto) 2.19 Total Counted Not Reportable PT 16.3 H INR 1.3 APTT 36.0 Sodium 145 Potassium 3.9 Chloride 108 H Carbon Dioxide 31.0 Anion Gap 6 BUN 13 Creatinine 0.68 Estim Creat Clear Calc 89.83 Est GFR (MDRD) Af Amer 116 Est GFR (MDRD) Non-Af 96 BUN/Creatinine Ratio 19.3 Glucose 70 L Calcium 8.3 L Total Bilirubin 0.80 Direct Bilirubin 0.34 H AST 37 ALT 32 Alkaline Phosphatase 120 H Total Protein 6.5 Albumin 2.7 L Globulin 3.8 Triglycerides 64 Cholesterol 131 LDL Cholesterol 87 VLDL Cholesterol 13 HDL Cholesterol 31 L Urine Color Urine Clarity Urine pH Ur Specific [place] Urine Protein Urine Glucose (UA) Urine Ketones Urine Occult Blood Urine Nitrite Urine Bilirubin Urine Urobilinogen Ur Leukocyte Esterase Urine RBC Urine WBC Ur Squamous Epith Cells Urine Bacteria Urine Mucus 04/26/18 07:35 WBC RBC Hgb Hct MCV MCH MCHC RDW RDW Differential Plt Count MPV Immature Gran % (Auto) Neut % (Auto) Lymph % (Auto) [place] % (Auto) Eos % (Auto) Baso % (Auto) Absolute Neuts (auto) Absolute Lymphs (auto) Total Counted PT INR APTT Sodium Potassium Chloride Carbon Dioxide Anion Gap BUN Creatinine Estim Creat Clear Calc Est GFR (MDRD) Af Amer Est GFR (MDRD) Non-Af BUN/Creatinine Ratio Glucose Calcium Total Bilirubin Direct Bilirubin AST ALT Alkaline Phosphatase Total Protein Albumin Globulin Triglycerides Cholesterol LDL Cholesterol VLDL Cholesterol HDL Cholesterol Urine Color Yellow Urine Clarity Clear Urine pH 7.0 Ur Specific [place] 1.010 Urine Protein Negative Urine Glucose (UA) Normal Urine Ketones Negative Urine Occult Blood 10 H Urine Nitrite Positive H Urine Bilirubin Negative Urine Urobilinogen Normal Ur Leukocyte Esterase 500 H Urine RBC Pending Urine WBC Pending Ur Squamous Epith Cells Pending Urine Bacteria Pending Urine Mucus Pending Assessment/Plan Patient seen under my supervision by Jaya SPEAR Admitted with a complaint of SOB and managed for acute hypoxic respiratory failure due to diastolic CHF exacerbation. Patient seen and examined this morning. She was comfortable and off oxygen. She had no complaints and is awaiting cardiac cath today. She is to get a midline placed as she is a hard stick. Vitals are significant for an asymptomatic bradycardia. Hyponatremia has resolved. Troponins trended up and then down. Will await results of cath. Patient was seen and examined. Vital Signs Height 5 ft 7 in Weight: 261 lb 3.964 oz Weight in Pounds 261.2 lbs Pulse Ox 93 Temperature 97.9 F Pulse Rate 52 Respiratory Rate 20 Blood Pressure [BP] 108/75 Blood Pressure 138/80 Blood Pressure Position [BP] Sitting Blood Pressure Position Sitting General: Alert, Oriented x3, Cooperative, No apparent distress HEENT: Atraumatic, PERRLA, EOMI, Normocephalic Oral: Moist Mucosa Neck: Supple, No JVD, Negative Carotid Bruits Lungs: Clear to auscultation, Normal air movement, No rhonchi, No wheeze, No rales, Cardiovascular: Regular rate, Regular Rhythm, Normal S1, Normal S2, No murmurs Abdomen: Bowel Sounds Present, Soft, Non Tender, Non-Distended, No Hepato- splenomegaly Extremities: No clubbing, No cyanosis, No edema, Capillary Refill Less than 3 Seconds Skin: No rashes, No breakdown Musculoskeletal: No Tenderness to Palpation of Joints or Extremities Lymphatic: No Cervical, Supraclavicular, or Inguinal Adenopathy Neurological: Cranial nerves II-XII grossly intact Psych/Mental Status: Normal Affect, Appropriate, Alert and oriented to time, place, person, mood and affect Agree with above note, assessment and plan of Jaya Perez PA-C Code Visit Inpatient E&M: [id number] Subs Hosp L2
--- NOTE | 2018-04-26 14:31 | US_ITS ---
STUDY: ABDOMINAL ULTRASOUND - RIGHT UPPER QUADRANT REASON FOR VISIT: Female, 57 years old. Abnormal labs TECHNIQUE: Ultrasound evaluation of the right upper quadrant was performed with real-time and static fuller-scale imaging. TECHNICAL QUALITY: Adequate. COMPARISON: Prior study of 10/05/2017 FINDINGS: Liver: The liver measures 16.6 cm. There is increased echogenicity consistent with fatty infiltration. The liver is slightly nodular in contour. The bile ducts are within normal limits. There is hepatic color flow. The direction of portal flow is hepatopetal. There is no demonstrated mass lesion. Gallbladder: Normal distended gallbladder. The gallbladder wall measures 2 mm. There is a negative sonographic Villafuerte's sign. There is no pericholecystic fluid. There are multiple echogenic structures within the gallbladder, consistent with multiple gallstones. Common Bile Duct (C.B.D.): The common bile duct measures 4 mm. Pancreas: Normal size of the head, body and tail of the pancreas. There is normal echogenicity of the pancreas. There is no demonstrated pancreatic mass or cyst. Right Kidney: Normal size of the right kidney. The right kidney measures 12.9 x 4.7 x 4.4 cm. Normal renal cortex. The right cortex measures 1.1 cm. There is no demonstrated renal mass or cyst. There is no right hydronephrosis. US/Gallbladder IMPRESSION: 1. There is slightly increased hepatic echogenicity suggestive of steatosis. 2. The liver is slightly nodular in contour. 3. Cholelithiasis. Electronically Signed: Javier Curry MD at 19:39 EDT , Service support ,
--- NOTE | 2018-04-26 14:42 | CL.D_ITS ---
Patient Name: MARIANA BLACKWOOD Study Date: 04/26/2018 Performing: Jorge Schmid MD Ht: 66.92 inches 170 cm : 1960 Wt: 266.76 lbs 121 kg Age: 57 Gender: female BSA: 2.28 PROCEDURE(S) PERFORMED [id number]/LV CLINICAL PROFILE AND INDICATIONS Patient presents with NSTEMI for urgent cardiac cath Indications: ACS <= 24 hrs, Suspected CAD Heart Failure: NYHA Class: 2, Newly Diagnosed: Yes, Heart Failure Type: Diastolic Stress/Imaging Stress Test w/SPECT MPI: Yes Result: NegativeStress Test with SPECT MPI: Negative Angina Classification Anginal Classification w/in 2 Weeks: CCS III CAD Presentations: Unstable angina. Non-STEMI. Symptom onset Date/Time: 04/25/2018 Time Not Availa ble Comorbidities/Risk Factors: Hypertension CONCLUSIONS Non obstructive coronary arteries Normal LV size, wall motion,and systolic function RECOMMENDATIONS Risk factor modification Management as per referring Electrician Master ASA Indefinitely start Hyzaar 50/12.5 mg po daily. DESCRIPTION OF PROCEDURE The patient arrived to the procedure lab. The risks and benefits of the procedure as well as a full d escription of our services here and current unavailability of surgical backup were fully explained to the patient and/or their significant other prior to the catheterization. The Timeout was completed, verifying the correct patient and procedure. The patient's procedural site was prepped and draped in the usual fashion. Local anesthetic was given subcutaneously to right groin region with Lidocaine 2%. Using a modified Seldinger technique, arterial access was obtained via the right femoral artery, a 4 Fr sheath was inserted Left Coronary Artery selective angiography was performed in multiple views us ing a 4 Fr. JL5 catheter. Right Coronary Artery selective angiography was then performed in multiple views using a 4 Fr. 3DRC catheter. Left Ventriculography was performed in MURPHY projection using a 4 Fr . Pigtail catheter. LV to AO pullback pressures were then recorded.The arterial sheath was pulled and manual compression applied until hemostasis is achieved. CORONARY ANGIOGRAPHY DOMINANCE: Right Dominant LEFT HEART ASSESSMENT Left Ventricular Ejection Fraction: by LV Gram 65 % Normal LV wall motion Normal Left Ventricular systolic function LEFT MAIN: Angiographically normal LEFT ANTERIOR DECENDING ARTERY: Angiographically normal CIRCUMFLEX ARTERY: MID CIRC: Mild luminal irregularities less than 30% RIGHT CORONARY ARTERY: Angiographically normal COMPLICATIONS No Complications PROCEDURE MEDICATIONS Oxygen: 2 L/min via nasal cannula Nitro 200 mcg IC 04/26/2018 14:25:37 SUMMARY OF HEMODYNAMIC DATA Time AIR REST ECG 13:55:03 AO 149/73 (100) SA 14:18:10 LV 184/-6, 27 14:24:11 LV 183/-4, 27 14:24:19 LVp 181/-6, 24 14:24:26 AOp 175/83 (118) 14:24:31 Signed By Jorge Schmid MD On 04/26/2018 14:41:56 Jorge Schmid MD
[2018-04-26 16:19] LABS: Bacteria 2+ /hpf (None Seen); Squamous Epithelial Cells - UA 0-5 SEEN /hpf (5-10); White Blood Cells 5-10 SEEN /hpf (0-5)
[2018-04-26] MEDS: Ibuprofen 200 MG Tablet 400 MG PO (19:52)
[2018-04-26] MEDS: Lactulose 20 GM/30 ML UDC 15 GM PO (22:12)
[2018-04-26] MEDS: Ciprofloxacin 500 MG Tablet PO (22:12)
[2018-04-26] MEDS: rifAXIMin 550 MG Tablet PO (22:14)
[2018-04-26] MEDS: hydrOXYzine PAM 25 MG Capsule 100 MG PO (22:15)
[2018-04-27] VITALS (7 sets, daily range): BP systolic 163; BP diastolic 77–86; PULSE 56–61; RESP 16–18; TEMP 36.8–37.2; O2SAT 90–95
[2018-04-27] MEDS: Ibuprofen 200 MG Tablet 400 MG PO (06:42)
[2018-04-27] MEDS: Losartan Potassium 50 MG Tablet PO (06:52)
[2018-04-27] MEDS: HYDROCHLOROTHIAZIDE 12.5 MG CAPSULE PO (06:52)
[2018-04-27] MEDS: Ipratropium/Albuterol Sulfate 3 ML AMPUL.NEB INHALATION ×2 (07:10→10:31)
[2018-04-27] MEDS: 0.9% NaCl Peripheral Flush Adult/Peds IV (08:04)
[2018-04-27] MEDS: Multivitamins,Ther W-Minerals Tablet 1 TABLET PO (08:05)
[2018-04-27] MEDS: Aspirin 81 MG TAB.CHEW PO (08:05)
--- NOTE | 2018-04-27 08:26 | CCN.REFER ---
PER [facility]ORE[facility], PATIENT IS PUT ON HOLD FOR CCN SERVICES. [employer] OR FAMILY WILL CONTACT US IF THEY FEEL PATIENT WILL BENEFIT BY USING CCN IN THE FUTURE.
[2018-04-27 08:33] LABS: Absolute Lymphocyte Count 1.81 X10^3/ul (0.83-4.51); Absolute Neutrophil Count 3.5 X10^3/uL (2.0-7.7); Basophil# 0.02 X10^3/uL; Basophil% 0.3 % (0-1); Eosinophil# 0.11 X10^3/uL; Eosinophils% 1.8 % (0-5); Hematocrit 37.1 % (37-47); Hemoglobin 12.4 g/dl (12.0-15.0); Lymphocyte # 1.81 X10^3/ul (4.0); Lymphocyte % 29.8 % (19-41); Mean Corp Hgb Conc 33.4 g/gl (32-36); Mean Corpuscular Hgb 32.8 pg (27.0-32.0); Mean Corpuscular Volume 98.1 fL (81-99); Mean Platelet Vol. 10.3 fl (6.2-12.0); Monocyte# 0.67 X10^3/uL; Neutrophil # 3.46 X10^3/uL (2.7-7.7); Neutrophil % 56.9 % (47-70); Platelet Count 98 K/mm3 (150-450); RBC Distribution Width SD 57.8 fl (35.1-43.9); Red Blood Count 3.78 M/mm3 (4.2-5.4); White Blood Count 6.1 K/mm3 (4.4-11.0)
[2018-04-27 08:36] LABS: POSITIVE COUNT NO; POSITIVE DIFFERENTIAL NO; POSITIVE MORPHOLOGY NO
[2018-04-27 08:41] LABS: Anion Gap 1 (5-15); BUN 14 mg/dL (7-18); BUN/Creat Ratio 19.3 RATIO (10-20); Chloride 105 mmol/L (98-107); Creatinine, Serum 0.72 mg/dL (0.55-1.02); EST Glomerular Filtration Rate 88 mL/min (>60); Est Glom Filt Rate - Afr Amer 107 mL/min (>60); Estimated Creatinine Clearance 84.84 ml/min; Glucose 129 mg/dL (74-106); Potassium 4.1 mmol/L (3.5-5.1); Sodium Level 139 mmol/L (136-145)
[2018-04-27] MEDS: Lactulose 20 GM/30 ML UDC 15 GM PO (09:23)
[2018-04-27] MEDS: Propranolol LA 60 MG Capsule PO (09:23)
[2018-04-27] MEDS: Venlafaxine XR 37.5 MG Capsule PO (09:23)
[2018-04-27] MEDS: Ciprofloxacin 500 MG Tablet PO (09:23)
[2018-04-27] MEDS: Paliperidone 6 MG Tablet 12 MG PO (09:24)
[2018-04-27] MEDS: rifAXIMin 550 MG Tablet PO (09:24)
--- NOTE | 2018-04-27 10:33 | PCM.DC ---
- Discharge Diagnoses Current Active Problems: Current Active and Chronic Problems CHF (congestive heart failure) (Acute) Respiratory distress (Acute) Abnormal cardiac enzyme level (Acute) QT prolongation (Acute) You will use the following diet at home:: Cardiac Your food should be the consistency of: Regular Your liquids should be the consistency of: Regular/Thin Discharge Activity: Return to Normal Activity Weight Bearing Status: Weight bearing as tolerated Call your doctor if you observe: Shortness of breath, Swelling in the ankles, Increased palpitations (irregular heartbeat) Instructions: Controlling High Blood Pressure, Discharge Instructions: Eating a Low-Salt Diet, Discharge Instructions for Malignant Hypertension Allergies/Adverse Reactions: Allergies aripiprazole [From Abilify] Allergy (Verified 04/24/18 20:15) Other diphenhydramine [From Benadryl] Allergy (Verified 04/24/18 20:15) Itching lithium Allergy (Verified 04/24/18 20:15) Other lorazepam [From Ativan] Allergy (Verified 04/24/18 20:15) Other risperidone [From Risperdal] Allergy (Verified 04/24/18 20:15) Swelling zolpidem [From Ambien] Allergy (Verified 04/24/18 20:15) Itching quetiapine [From Seroquel] Adverse Reaction (Verified 04/24/18 20:15) Other I GET HIGH, I GET ANXIOUS, I CAN'T SLEEP Medications to take at Discharge Multivits,Ca,Minerals/Iron/FA [Women's Daily Formula Caplet] 1 each PO DAILY 05/06/16 Paliperidone [Invega] 12 mg PO DAILY 09/22/16 Pristiq 50 mg PO DAILY 10/11/17 Rifaximin [Xifaxan] 550 mg PO BID tablet 10/11/17 Cyclobenzaprine [Flexeril] 10 mg PO TID PRN PRN 04/25/18 Hydroxyzine Pamoate [Vistaril] 100 mg PO QHS 04/25/18 Lactulose 15 mg PO BID 04/25/18 Propranolol HCl [Propranolol HCl ER] 60 mg PO DAILY 04/25/18 Aspirin [Aspirin, Baby] 81 mg PO DAILY@0800 #30 tab.chew 04/27/18 Atorvastatin Calcium 40 mg PO DAILY #30 tab 04/27/18 Losartan/Hydrochlorothiazide [Hyzaar 50-12.5 Tablet] 1 tab PO DAILY #30 tab 04/27/18 The following prescriptions were given: Aspirin [Aspirin, Baby] 81 mg PO DAILY@0800 #30 tab.chew Atorvastatin Calcium 40 mg PO DAILY #30 tab Losartan/Hydrochlorothiazide [Hyzaar 50-12.5 Tablet] 1 tab PO DAILY #30 tab Primary Care Physician: Vikram Easton MD [Primary Care Provider] - Please follow up with your Primary Care Physician in: one week Test Results: Test results from this visit will be discussed in further detail at your follow-up appointment, if applicable. Please Follow Up With: Jorge Schmid MD When: two weeks Proposed Discharge Date: 04/27/18
--- NOTE | 2018-04-27 10:37 | DCINST_ITS ---
- Discharge Diagnoses Current Active Problems: Current Active and Chronic Problems CHF (congestive heart failure) (Acute) Respiratory distress (Acute) Abnormal cardiac enzyme level (Acute) QT prolongation (Acute) You will use the following diet at home:: Cardiac Your food should be the consistency of: Regular Your liquids should be the consistency of: Regular/Thin Discharge Activity: Return to Normal Activity Weight Bearing Status: Weight bearing as tolerated Call your doctor if you observe: Shortness of breath, Swelling in the ankles, Increased palpitations (irregular heartbeat) Instructions: Controlling High Blood Pressure, Discharge Instructions: Eating a Low-Salt Diet, Discharge Instructions for Malignant Hypertension Allergies/Adverse Reactions: Allergies aripiprazole [From Abilify] Allergy (Verified 04/24/18 20:15) Other diphenhydramine [From Benadryl] Allergy (Verified 04/24/18 20:15) Itching lithium Allergy (Verified 04/24/18 20:15) Other lorazepam [From Ativan] Allergy (Verified 04/24/18 20:15) Other risperidone [From Risperdal] Allergy (Verified 04/24/18 20:15) Swelling zolpidem [From Ambien] Allergy (Verified 04/24/18 20:15) Itching quetiapine [From Seroquel] Adverse Reaction (Verified 04/24/18 20:15) Other I GET HIGH, I GET ANXIOUS, I CAN'T SLEEP Medications to take at Discharge Multivits,Ca,Minerals/Iron/FA [Women's Daily Formula Caplet] 1 each PO DAILY 08/11 Paliperidone [Invega] 12 mg PO DAILY 09/22/16 Pristiq 50 mg PO DAILY 10/11/17 Rifaximin [Xifaxan] 550 mg PO BID tablet 10/11/17 Cyclobenzaprine [Flexeril] 10 mg PO TID PRN PRN 04/25/18 Hydroxyzine Pamoate [Vistaril] 100 mg PO QHS 04/25/18 Lactulose 15 mg PO BID 04/25/18 Propranolol HCl [Propranolol HCl ER] 60 mg PO DAILY 04/25/18 Aspirin [Aspirin, Baby] 81 mg PO DAILY@0800 #30 tab.chew 04/27/18 Atorvastatin Calcium 40 mg PO DAILY #30 tab 04/27/18 Losartan/Hydrochlorothiazide [Hyzaar 50-12.5 Tablet] 1 tab PO DAILY #30 tab 11/13 The following prescriptions were given: Aspirin [Aspirin, Baby] 81 mg PO DAILY@0800 #30 tab.chew Atorvastatin Calcium 40 mg PO DAILY #30 tab Losartan/Hydrochlorothiazide [Hyzaar 50-12.5 Tablet] 1 tab PO DAILY #30 tab Primary Care Physician: Vikram Easton MD [Primary Care Provider] - Please follow up with your Primary Care Physician in: one week Test Results: Test results from this visit will be discussed in further detail at your follow- up appointment, if applicable. Please Follow Up With: Jorge Schmid MD When: two weeks Proposed Discharge Date: 04/27/18
--- NOTE | 2018-04-27 10:38 | PCM.DC.SUM ---
Discharge Date and Diagnosis Date of Admission: 04/24/18 Date of Discharge: 04/27/18 - Primary Discharge Diagnosis Active and Suspected Problems CHF (congestive heart failure) (Acute) Respiratory distress (Acute) Abnormal cardiac enzyme level (Acute) QT prolongation (Acute) hypertensive emergency - Secondary Discharge Diagnosis Chronic Problems Thrombocytopenia (Chronic) Hypokalemia (Chronic) Dysphagia (Chronic) Macrocytic anemia (Chronic) HTN (hypertension) (Chronic) Alcohol abuse (Chronic) Liver cirrhosis (Chronic) Hospital Course and Treatment Imaging Results: Diagnostic Data Chest X-Ray 04/25/18 05:55 IMPRESSION: Mild degree of residual CHF. Electronically Signed: Allen Coelho MD at 12:55 EDT Tel [phone], Service support , Gallbladder Ultrasound 04/26/18 14:31 IMPRESSION: 1. There is slightly increased hepatic echogenicity suggestive of steatosis. 2. The liver is slightly nodular in contour. 3. Cholelithiasis. Electronically Signed: Javier Curry MD at 19:39 EDT , Service support , Laboratory Tests 04/24/18 04/24/18 04/24/18 21:10 21:10 21:10 WBC 8.6 RBC 4.23 Hgb 14.2 Hct 40.3 MCV 95.3 MCH 33.6 H MCHC 35.2 RDW 14.9 H RDW Differential 52.2 H Plt Count 105 L MPV 10.0 Immature Gran % (Auto) 0.200 Neut % (Auto) 76.3 H Lymph % (Auto) 15.2 L [place] % (Auto) 7.0 Eos % (Auto) 1.2 Baso % (Auto) 0.1 Absolute Neuts (auto) 6.6 Absolute Lymphs (auto) 1.30 Total Counted Not Reportable PT INR APTT Specimen Type Sample Site pH Bicarbonate Actual POC Total CO2 Base Excess O2 Saturation O2 % ABG pCO2 ABG pO2 Juan Daniel Test Respiration Rate O2 Delivery Device EPAP IPAP Blood Gas Notified Whom Blood Gas Notified Time Sodium 125 L Potassium 3.6 Chloride 94 L Carbon Dioxide 20.0 L Anion Gap 11 BUN 4 L Creatinine 0.76 Estim Creat Clear Calc 86.38 Est GFR (MDRD) Af Amer 101 Est GFR (MDRD) Non-Af 83 BUN/Creatinine Ratio 5.2 L Glucose 140 H Calcium 8.5 Magnesium Total Bilirubin Direct Bilirubin AST ALT Alkaline Phosphatase Troponin I 0.033 B-Natriuretic Peptide 267.1 H Total Protein Albumin Globulin Triglycerides Cholesterol LDL Cholesterol VLDL Cholesterol HDL Cholesterol Urine Color Urine Clarity Urine pH Ur Specific [place] Urine Protein Urine Glucose (UA) Urine Ketones Urine Occult Blood Urine Nitrite Urine Bilirubin Urine Urobilinogen Ur Leukocyte Esterase Urine RBC Urine WBC Ur Squamous Epith Cells Urine Bacteria Urine Mucus 04/24/18 04/25/18 04/25/18 21:24 00:10 03:20 WBC RBC Hgb Hct MCV MCH MCHC RDW RDW Differential Plt Count MPV Immature Gran % (Auto) Neut % (Auto) Lymph % (Auto) [place] % (Auto) Eos % (Auto) Baso % (Auto) Absolute Neuts (auto) Absolute Lymphs (auto) Total Counted PT INR APTT Specimen Type ART Sample Site R Radial pH 7.30 L Bicarbonate Actual 20.3 L POC Total CO2 22 Base Excess -6 L O2 Saturation 100 H O2 % 60 ABG pCO2 41.6 ABG pO2 224 H Juan Daniel Test POS Respiration Rate 12 O2 Delivery Device Bi / C PAP EPAP 6 IPAP 14 Blood Gas Notified Whom ED Blood Gas Notified Time 2114 Sodium Potassium Chloride Carbon Dioxide Anion Gap BUN Creatinine Estim Creat Clear Calc Est GFR (MDRD) Af Amer Est GFR (MDRD) Non-Af BUN/Creatinine Ratio Glucose Calcium Magnesium Total Bilirubin Direct Bilirubin AST ALT Alkaline Phosphatase Troponin I 0.332 H 0.360 H B-Natriuretic Peptide Total Protein Albumin Globulin Triglycerides Cholesterol LDL Cholesterol VLDL Cholesterol HDL Cholesterol Urine Color Urine Clarity Urine pH Ur Specific [place] Urine Protein Urine Glucose (UA) Urine Ketones Urine Occult Blood Urine Nitrite Urine Bilirubin Urine Urobilinogen Ur Leukocyte Esterase Urine RBC Urine WBC Ur Squamous Epith Cells Urine Bacteria Urine Mucus 04/25/18 04/25/18 04/25/18 03:20 03:20 11:55 WBC 8.0 RBC 4.07 L Hgb 13.3 Hct 38.6 MCV 94.8 MCH 32.7 H MCHC 34.5 RDW 14.6 RDW Differential 50.8 H Plt Count 87 L MPV 9.7 Immature Gran % (Auto) 0.100 Neut % (Auto) 88.5 H Lymph % (Auto) 9.6 L [place] % (Auto) 1.7 Eos % (Auto) 0.0 Baso % (Auto) 0.1 Absolute Neuts (auto) 7.1 Absolute Lymphs (auto) 0.77 L Total Counted Not Reportable PT INR APTT Specimen Type Sample Site pH Bicarbonate Actual POC Total CO2 Base Excess O2 Saturation O2 % ABG pCO2 ABG pO2 Juan Daniel Test Respiration Rate O2 Delivery Device EPAP IPAP Blood Gas Notified Whom Blood Gas Notified Time Sodium 134 L Potassium 3.0 L Chloride 98 Carbon Dioxide 26.0 Anion Gap 10 BUN 6 L Creatinine 0.77 Estim Creat Clear Calc 79.33 Est GFR (MDRD) Af Amer 99 Est GFR (MDRD) Non-Af 82 BUN/Creatinine Ratio 7.8 L Glucose 196 H Calcium 8.2 L Magnesium Total Bilirubin Direct Bilirubin AST ALT Alkaline Phosphatase Troponin I 0.183 H B-Natriuretic Peptide Total Protein Albumin Globulin Triglycerides Cholesterol LDL Cholesterol VLDL Cholesterol HDL Cholesterol Urine Color Urine Clarity Urine pH Ur Specific [place] Urine Protein Urine Glucose (UA) Urine Ketones Urine Occult Blood Urine Nitrite Urine Bilirubin Urine Urobilinogen Ur Leukocyte Esterase Urine RBC Urine WBC Ur Squamous Epith Cells Urine Bacteria Urine Mucus 04/25/18 04/26/18 04/26/18 11:55 05:10 05:10 WBC 12.8 H RBC 3.66 L Hgb 12.6 Hct 34.7 L MCV 94.8 MCH 34.4 H MCHC 36.3 H RDW 15.6 H RDW Differential 51.5 H Plt Count 98 L MPV 10.1 Immature Gran % (Auto) 0.300 Neut % (Auto) 75.8 H Lymph % (Auto) 17.1 L [place] % (Auto) 6.2 Eos % (Auto) 0.5 Baso % (Auto) 0.1 Absolute Neuts (auto) 9.7 H Absolute Lymphs (auto) 2.19 Total Counted Not Reportable PT INR APTT Specimen Type Sample Site pH Bicarbonate Actual POC Total CO2 Base Excess O2 Saturation O2 % ABG pCO2 ABG pO2 Juan Daniel Test Respiration Rate O2 Delivery Device EPAP IPAP Blood Gas Notified Whom Blood Gas Notified Time Sodium 145 Potassium 3.9 Chloride 108 H Carbon Dioxide 31.0 Anion Gap 6 BUN 13 Creatinine 0.68 Estim Creat Clear Calc 89.83 Est GFR (MDRD) Af Amer 116 Est GFR (MDRD) Non-Af 96 BUN/Creatinine Ratio 19.3 Glucose 70 L Calcium 8.3 L Magnesium 1.7 Total Bilirubin 0.80 Direct Bilirubin 0.34 H AST 37 ALT 32 Alkaline Phosphatase 120 H Troponin I B-Natriuretic Peptide Total Protein 6.5 Albumin 2.7 L Globulin 3.8 Triglycerides 64 Cholesterol 131 LDL Cholesterol 87 VLDL Cholesterol 13 HDL Cholesterol 31 L Urine Color Urine Clarity Urine pH Ur Specific [place] Urine Protein Urine Glucose (UA) Urine Ketones Urine Occult Blood Urine Nitrite Urine Bilirubin Urine Urobilinogen Ur Leukocyte Esterase Urine RBC Urine WBC Ur Squamous Epith Cells Urine Bacteria Urine Mucus 04/26/18 04/26/18 04/27/18 05:10 07:35 07:55 WBC 6.1 RBC 3.78 L Hgb 12.4 Hct 37.1 MCV 98.1 MCH 32.8 H MCHC 33.4 RDW 16.0 H RDW Differential 57.8 H Plt Count 98 L MPV 10.3 Immature Gran % (Auto) 0.200 Neut % (Auto) 56.9 Lymph % (Auto) 29.8 [place] % (Auto) 11.0 H Eos % (Auto) 1.8 Baso % (Auto) 0.3 Absolute Neuts (auto) 3.5 Absolute Lymphs (auto) 1.81 Total Counted Not Reportable PT 16.3 H INR 1.3 APTT 36.0 Specimen Type Sample Site pH Bicarbonate Actual POC Total CO2 Base Excess O2 Saturation O2 % ABG pCO2 ABG pO2 Juan Daniel Test Respiration Rate O2 Delivery Device EPAP IPAP Blood Gas Notified Whom Blood Gas Notified Time Sodium Potassium Chloride Carbon Dioxide Anion Gap BUN Creatinine Estim Creat Clear Calc Est GFR (MDRD) Af Amer Est GFR (MDRD) Non-Af BUN/Creatinine Ratio Glucose Calcium Magnesium Total Bilirubin Direct Bilirubin AST ALT Alkaline Phosphatase Troponin I B-Natriuretic Peptide Total Protein Albumin Globulin Triglycerides Cholesterol LDL Cholesterol VLDL Cholesterol HDL Cholesterol Urine Color Yellow Urine Clarity Clear Urine pH 7.0 Ur Specific [place] 1.010 Urine Protein Negative Urine Glucose (UA) Normal Urine Ketones Negative Urine Occult Blood 10 H Urine Nitrite Positive H Urine Bilirubin Negative Urine Urobilinogen Normal Ur Leukocyte Esterase 500 H Urine RBC 0 SEEN Urine WBC 5-10 SEEN Ur Squamous Epith Cells 0-5 SEEN Urine Bacteria 2+ Urine Mucus 0 SEEN 04/27/18 07:55 WBC RBC Hgb Hct MCV MCH MCHC RDW RDW Differential Plt Count MPV Immature Gran % (Auto) Neut % (Auto) Lymph % (Auto) [place] % (Auto) Eos % (Auto) Baso % (Auto) Absolute Neuts (auto) Absolute Lymphs (auto) Total Counted PT INR APTT Specimen Type Sample Site pH Bicarbonate Actual POC Total CO2 Base Excess O2 Saturation O2 % ABG pCO2 ABG pO2 Juan Daniel Test Respiration Rate O2 Delivery Device EPAP IPAP Blood Gas Notified Whom Blood Gas Notified Time Sodium 139 Potassium 4.1 Chloride 105 Carbon Dioxide 33.0 H Anion Gap 1 L BUN 14 Creatinine 0.72 Estim Creat Clear Calc 84.84 Est GFR (MDRD) Af Amer 107 Est GFR (MDRD) Non-Af 88 BUN/Creatinine Ratio 19.3 Glucose 129 H Calcium 8.0 L Magnesium Total Bilirubin Direct Bilirubin AST ALT Alkaline Phosphatase Troponin I B-Natriuretic Peptide Total Protein Albumin Globulin Triglycerides Cholesterol LDL Cholesterol VLDL Cholesterol HDL Cholesterol Urine Color Urine Clarity Urine pH Ur Specific [place] Urine Protein Urine Glucose (UA) Urine Ketones Urine Occult Blood Urine Nitrite Urine Bilirubin Urine Urobilinogen Ur Leukocyte Esterase Urine RBC Urine WBC Ur Squamous Epith Cells Urine Bacteria Urine Mucus cardiology- Dr Schmid Operations: None Procedures: 2-D Echocardiogram, Cardiac catheterization Summary of Care Provided: The patient is a 57 year old F with past medical history of coronary artery disease and STEMI, schizophrenia and chronic alcohol abuse with cirrhosis. He was admitted by the ED on 04/24/2018 with a complaint of acute onset shortness of breath with assisted tachycardia and markedly elevated blood pressure. She was found to be acidotic and hyponatremic on admission and BNP was slightly elevated at 267. Chest x-ray showed interstitial edema and cardiomegaly. She was admitted and managed for hypoxic respiratory failure due to CHF exacerbation and CHF exacerbation. She was put on BiPAP after which respiratory distress resolved and she was transitioned to 3 L of oxygen by nasal cannula. She was noted to have mildly elevated troponins with troponin trending up from 0.03-0.36. EKG showed no acute ST changes; repeat EKG showed prolonged QT.. Cardiology was consulted. Hyponatremia subsequent to resolved. 2D echo done showed EF of 70% with evidence of diastolic dysfunction, normal left ventricular systolic function, mildly enlarged right atrium and left atrium and trivial tricuspid and aortic valve insufficiency. RVSP was estimated to be 37 mmHg. She subsequently had a cardiac cath on account of an [facility] and findings of which were clean coronary arteries. Initial presentation was therefore thought to be due to flash pulmonary edema due to hypertensive emergency. Patient's liver function was trivially elevated and so and a gallbladder ultrasound done showed gallstones which were asymptomatic. Patient was therefore started on atorvastatin 40 mg daily and aspirin 81 mg daily. She was also started on losartan 50 mg daily and hydrochlorthiazide 25 mg daily. She was discharged home on 04/27/18 and she is to follow-up with her primary care doctor, and cardiology. Patient seen and examined prior to discharge. She had no complaints and was very comfortable and eating a hearty breakfast. She denied any fever chills, cough or chest pain, shortness of breath, any abdominal pain, any diarrhea vomiting. Review of systems otherwise negative. o/e: Vital Signs Height 5 ft 7 in Weight: 265 lb 3.457 oz Weight in Pounds 265.2 lbs Pulse Ox 95 Temperature 98.9 F Pulse Rate 58 Respiratory Rate 16 Blood Pressure [BP] 108/75 Blood Pressure 163/77 Blood Pressure Position [BP] Sitting Blood Pressure Position Semi-Fowlers []General: Alert, Oriented x3, Cooperative, No apparent distress HEENT: Atraumatic, PERRLA, EOMI, Normocephalic Oral: Moist Mucosa Neck: Supple, No JVD, Negative Carotid Bruits Lungs: Clear to auscultation, Normal air movement, No rhonchi, No wheeze, No rales,saturating well on room air Cardiovascular: Regular rate, Regular Rhythm, Normal S1, Normal S2, No murmurs Abdomen: Bowel Sounds Present, Soft, Non Tender, Non-Distended, No Hepato-splenomegaly Extremities: No clubbing, No cyanosis, No edema, Capillary Refill Less than 3 Seconds Skin: No rashes, No breakdown Musculoskeletal: No Tenderness to Palpation of Joints or Extremities Lymphatic: No Cervical, Supraclavicular, or Inguinal Adenopathy Neurological: Cranial nerves II-XII grossly intact Psych/Mental Status: Normal Affect, Appropriate, Alert and oriented to time, place, person, mood and affect Plan as stated above. She was also started on p.o. ciprofloxacin during admission on account of possible UTI as urinalysis was consistent with UTI and she was mildly symptomatic. Based on QT prolongation per EKG, patient will be discharged home on a prescription for Bactrim for 3 days for UTI. Discharge Diet: 2000 mg Sodium Diet Discharge Activity: Return to Normal Activity Weight Bearing Status: Weight bearing as tolerated Call your doctor if you observe: Shortness of breath, Swelling in the ankles, Increased palpitations (irregular heartbeat) Home Medications: Medications to take at Discharge Multivits,Ca,Minerals/Iron/FA [Women's Daily Formula Caplet] 1 each PO DAILY 05/06/16 Paliperidone [Invega] 12 mg PO DAILY 09/22/16 Pristiq 50 mg PO DAILY 10/11/17 Rifaximin [Xifaxan] 550 mg PO BID tablet 10/11/17 Cyclobenzaprine [Flexeril] 10 mg PO TID PRN PRN 04/25/18 Hydroxyzine Pamoate [Vistaril] 100 mg PO QHS 04/25/18 Lactulose 15 mg PO BID 04/25/18 Propranolol HCl [Propranolol HCl ER] 60 mg PO DAILY 04/25/18 Aspirin [Aspirin, Baby] 81 mg PO DAILY@0800 #30 tab.chew 04/27/18 Atorvastatin Calcium 40 mg PO DAILY #30 tab 04/27/18 Losartan/Hydrochlorothiazide [Hyzaar 50-12.5 Tablet] 1 tab PO DAILY #30 tab 04/27/18 Smz/Tmp Ds [Bactrim Ds] 1 tab PO BID #6 tab 04/27/18 Following Prescrptions Were Given to Patient: Aspirin [Aspirin, Baby] 81 mg PO DAILY@0800 #30 tab.chew Atorvastatin Calcium 40 mg PO DAILY #30 tab Losartan/Hydrochlorothiazide [Hyzaar 50-12.5 Tablet] 1 tab PO DAILY #30 tab Smz/Tmp Ds [Bactrim Ds] 1 tab PO BID #6 tab Primary Care Physician: Vikram Easton MD [Primary Care Provider] - Please follow up with your Primary Care Physician in: one week Please Follow Up With: Jorge Schmid MD When: two weeks Patient Instructions: Controlling High Blood Pressure, Discharge Instructions for Malignant Hypertension, Discharge Instructions: Eating a Low-Salt Diet Disposition: Home Minutes spent on discharge:: 40 Patient Condition:: Stable Medical Necessity - Tobacco Use Smoking Status: Current every day smoker Meaningful Use Info Meaningful Use Diagnoses (Choose all that apply): CHF - CHF ANMOL/ARB ordered at discharge?: Yes Documented LVEF (%): 70 Code Visit Inpatient E&M: 12155 Disch Hosp
--- NOTE | 2018-04-27 10:45 | DS.PCM_ITS ---
Discharge Date and Diagnosis Date of Admission: 04/24/18 Date of Discharge: 04/27/18 - Primary Discharge Diagnosis Active and Suspected Problems CHF (congestive heart failure) (Acute) Respiratory distress (Acute) Abnormal cardiac enzyme level (Acute) QT prolongation (Acute) hypertensive emergency - Secondary Discharge Diagnosis Chronic Problems Thrombocytopenia (Chronic) Hypokalemia (Chronic) Dysphagia (Chronic) Macrocytic anemia (Chronic) HTN (hypertension) (Chronic) Alcohol abuse (Chronic) Liver cirrhosis (Chronic) Hospital Course and Treatment Imaging Results: Diagnostic Data Chest X-Ray 04/25/18 05:55 IMPRESSION: Mild degree of residual CHF. Electronically Signed: Allen Coelho MD at 12:55 EDT Tel [phone], Service support , Gallbladder Ultrasound 04/26/18 14:31 IMPRESSION: 1. There is slightly increased hepatic echogenicity suggestive of steatosis. 2. The liver is slightly nodular in contour. 3. Cholelithiasis. Electronically Signed: Javier Curry MD at 19:39 EDT , Service support , Laboratory Tests 04/24/18 04/24/18 04/24/18 21:10 21:10 21:10 WBC 8.6 RBC 4.23 Hgb 14.2 Hct 40.3 MCV 95.3 MCH 33.6 H MCHC 35.2 RDW 14.9 H RDW Differential 52.2 H Plt Count 105 L MPV 10.0 Immature Gran % (Auto) 0.200 Neut % (Auto) 76.3 H Lymph % (Auto) 15.[address] [place] % (Auto) 7.0 Eos % (Auto) 1.2 Baso % (Auto) 0.1 Absolute Neuts (auto) 6.6 Absolute Lymphs (auto) 1.30 Total Counted Not Reportable PT INR APTT Specimen Type Sample Site pH Bicarbonate Actual POC Total CO2 Base Excess O2 Saturation O2 % ABG pCO2 ABG pO2 Juan Daniel Test Respiration Rate O2 Delivery Device EPAP IPAP Blood Gas Notified Whom Blood Gas Notified Time Sodium 125 L Potassium 3.6 Chloride 94 L Carbon Dioxide 20.0 L Anion Gap 11 BUN 4 L Creatinine 0.76 Estim Creat Clear Calc 86.38 Est GFR (MDRD) Af Amer 101 Est GFR (MDRD) Non-Af 83 BUN/Creatinine Ratio 5.2 L Glucose 140 H Calcium 8.5 Magnesium Total Bilirubin Direct Bilirubin AST ALT Alkaline Phosphatase Troponin I 0.033 B-Natriuretic Peptide 267.1 H Total Protein Albumin Globulin Triglycerides Cholesterol LDL Cholesterol VLDL Cholesterol HDL Cholesterol Urine Color Urine Clarity Urine pH Ur Specific [place] Urine Protein Urine Glucose (UA) Urine Ketones Urine Occult Blood Urine Nitrite Urine Bilirubin Urine Urobilinogen Ur Leukocyte Esterase Urine RBC Urine WBC Ur Squamous Epith Cells Urine Bacteria Urine Mucus 04/24/18 04/25/18 04/25/18 21:24 00:10 03:20 WBC RBC Hgb Hct MCV MCH MCHC RDW RDW Differential Plt Count MPV Immature Gran % (Auto) Neut % (Auto) Lymph % (Auto) [place] % (Auto) Eos % (Auto) Baso % (Auto) Absolute Neuts (auto) Absolute Lymphs (auto) Total Counted PT INR APTT Specimen Type ART Sample Site R Radial pH 7.30 L Bicarbonate Actual 20.3 L POC Total CO2 22 Base Excess -6 L O2 Saturation 100 H O2 % 60 ABG pCO2 41.6 ABG pO2 224 H Juan Daniel Test POS Respiration Rate 12 O2 Delivery Device Bi / C PAP EPAP 6 IPAP 14 Blood Gas Notified Whom ED Blood Gas Notified Time 2114 Sodium Potassium Chloride Carbon Dioxide Anion Gap BUN Creatinine Estim Creat Clear Calc Est GFR (MDRD) Af Amer Est GFR (MDRD) Non-Af BUN/Creatinine Ratio Glucose Calcium Magnesium Total Bilirubin Direct Bilirubin AST ALT Alkaline Phosphatase Troponin I 0.332 H 0.360 H B-Natriuretic Peptide Total Protein Albumin Globulin Triglycerides Cholesterol LDL Cholesterol VLDL Cholesterol HDL Cholesterol Urine Color Urine Clarity Urine pH Ur Specific [place] Urine Protein Urine Glucose (UA) Urine Ketones Urine Occult Blood Urine Nitrite Urine Bilirubin Urine Urobilinogen Ur Leukocyte Esterase Urine RBC Urine WBC Ur Squamous Epith Cells Urine Bacteria Urine Mucus 04/25/18 04/25/18 04/25/18 03:20 03:20 11:55 WBC 8.0 RBC 4.07 L Hgb 13.3 Hct 38.6 MCV 94.8 MCH 32.7 H MCHC 34.5 RDW 14.6 RDW Differential 50.8 H Plt Count 87 L MPV 9.7 Immature Gran % (Auto) 0.100 Neut % (Auto) 88.5 H Lymph % (Auto) 9.[address] [place] % (Auto) 1.7 Eos % (Auto) 0.0 Baso % (Auto) 0.1 Absolute Neuts (auto) 7.1 Absolute Lymphs (auto) 0.77 L Total Counted Not Reportable PT INR APTT Specimen Type Sample Site pH Bicarbonate Actual POC Total CO2 Base Excess O2 Saturation O2 % ABG pCO2 ABG pO2 Juan Daniel Test Respiration Rate O2 Delivery Device EPAP IPAP Blood Gas Notified Whom Blood Gas Notified Time Sodium 134 L Potassium 3.0 L Chloride 98 Carbon Dioxide 26.0 Anion Gap 10 BUN 6 L Creatinine 0.77 Estim Creat Clear Calc 79.33 Est GFR (MDRD) Af Amer 99 Est GFR (MDRD) Non-Af 82 BUN/Creatinine Ratio 7.8 L Glucose 196 H Calcium 8.2 L Magnesium Total Bilirubin Direct Bilirubin AST ALT Alkaline Phosphatase Troponin I 0.183 H B-Natriuretic Peptide Total Protein Albumin Globulin Triglycerides Cholesterol LDL Cholesterol VLDL Cholesterol HDL Cholesterol Urine Color Urine Clarity Urine pH Ur Specific [place] Urine Protein Urine Glucose (UA) Urine Ketones Urine Occult Blood Urine Nitrite Urine Bilirubin Urine Urobilinogen Ur Leukocyte Esterase Urine RBC Urine WBC Ur Squamous Epith Cells Urine Bacteria Urine Mucus 04/25/18 04/26/18 04/26/18 11:55 05:10 05:10 WBC 12.8 H RBC 3.66 L Hgb 12.6 Hct 34.7 L MCV 94.8 MCH 34.4 H MCHC 36.3 H RDW 15.6 H RDW Differential 51.5 H Plt Count 98 L MPV 10.1 Immature Gran % (Auto) 0.300 Neut % (Auto) 75.8 H Lymph % (Auto) 17.[address] [place] % (Auto) 6.2 Eos % (Auto) 0.5 Baso % (Auto) 0.1 Absolute Neuts (auto) 9.7 H Absolute Lymphs (auto) 2.19 Total Counted Not Reportable PT INR APTT Specimen Type Sample Site pH Bicarbonate Actual POC Total CO2 Base Excess O2 Saturation O2 % ABG pCO2 ABG pO2 Juan Daniel Test Respiration Rate O2 Delivery Device EPAP IPAP Blood Gas Notified Whom Blood Gas Notified Time Sodium 145 Potassium 3.9 Chloride 108 H Carbon Dioxide 31.0 Anion Gap 6 BUN 13 Creatinine 0.68 Estim Creat Clear Calc 89.83 Est GFR (MDRD) Af Amer 116 Est GFR (MDRD) Non-Af 96 BUN/Creatinine Ratio 19.3 Glucose 70 L Calcium 8.3 L Magnesium 1.7 Total Bilirubin 0.80 Direct Bilirubin 0.34 H AST 37 ALT 32 Alkaline Phosphatase 120 H Troponin I B-Natriuretic Peptide Total Protein 6.5 Albumin 2.7 L Globulin 3.8 Triglycerides 64 Cholesterol 131 LDL Cholesterol 87 VLDL Cholesterol 13 HDL Cholesterol 31 L Urine Color Urine Clarity Urine pH Ur Specific [place] Urine Protein Urine Glucose (UA) Urine Ketones Urine Occult Blood Urine Nitrite Urine Bilirubin Urine Urobilinogen Ur Leukocyte Esterase Urine RBC Urine WBC Ur Squamous Epith Cells Urine Bacteria Urine Mucus 04/26/18 04/26/18 04/27/18 05:10 07:35 07:55 WBC 6.1 RBC 3.78 L Hgb 12.4 Hct 37.1 MCV 98.1 MCH 32.8 H MCHC 33.4 RDW 16.0 H RDW Differential 57.8 H Plt Count 98 L MPV 10.3 Immature Gran % (Auto) 0.200 Neut % (Auto) 56.9 Lymph % (Auto) 29.8 [place] % (Auto) 11.0 H Eos % (Auto) 1.8 Baso % (Auto) 0.3 Absolute Neuts (auto) 3.5 Absolute Lymphs (auto) 1.81 Total Counted Not Reportable PT 16.3 H INR 1.3 APTT 36.0 Specimen Type Sample Site pH Bicarbonate Actual POC Total CO2 Base Excess O2 Saturation O2 % ABG pCO2 ABG pO2 Juan Daniel Test Respiration Rate O2 Delivery Device EPAP IPAP Blood Gas Notified Whom Blood Gas Notified Time Sodium Potassium Chloride Carbon Dioxide Anion Gap BUN Creatinine Estim Creat Clear Calc Est GFR (MDRD) Af Amer Est GFR (MDRD) Non-Af BUN/Creatinine Ratio Glucose Calcium Magnesium Total Bilirubin Direct Bilirubin AST ALT Alkaline Phosphatase Troponin I B-Natriuretic Peptide Total Protein Albumin Globulin Triglycerides Cholesterol LDL Cholesterol VLDL Cholesterol HDL Cholesterol Urine Color Yellow Urine Clarity Clear Urine pH 7.0 Ur Specific [place] 1.010 Urine Protein Negative Urine Glucose (UA) Normal Urine Ketones Negative Urine Occult Blood 10 H Urine Nitrite Positive H Urine Bilirubin Negative Urine Urobilinogen Normal Ur Leukocyte Esterase 500 H Urine RBC 0 SEEN Urine WBC 5-10 SEEN Ur Squamous Epith Cells 0-5 SEEN Urine Bacteria 2+ Urine Mucus 0 SEEN 04/27/18 07:55 WBC RBC Hgb Hct MCV MCH MCHC RDW RDW Differential Plt Count MPV Immature Gran % (Auto) Neut % (Auto) Lymph % (Auto) [place] % (Auto) Eos % (Auto) Baso % (Auto) Absolute Neuts (auto) Absolute Lymphs (auto) Total Counted PT INR APTT Specimen Type Sample Site pH Bicarbonate Actual POC Total CO2 Base Excess O2 Saturation O2 % ABG pCO2 ABG pO2 Juan Daniel Test Respiration Rate O2 Delivery Device EPAP IPAP Blood Gas Notified Whom Blood Gas Notified Time Sodium 139 Potassium 4.1 Chloride 105 Carbon Dioxide 33.0 H Anion Gap 1 L BUN 14 Creatinine 0.72 Estim Creat Clear Calc 84.84 Est GFR (MDRD) Af Amer 107 Est GFR (MDRD) Non-Af 88 BUN/Creatinine Ratio 19.3 Glucose 129 H Calcium 8.0 L Magnesium Total Bilirubin Direct Bilirubin AST ALT Alkaline Phosphatase Troponin I B-Natriuretic Peptide Total Protein Albumin Globulin Triglycerides Cholesterol LDL Cholesterol VLDL Cholesterol HDL Cholesterol Urine Color Urine Clarity Urine pH Ur Specific [place] Urine Protein Urine Glucose (UA) Urine Ketones Urine Occult Blood Urine Nitrite Urine Bilirubin Urine Urobilinogen Ur Leukocyte Esterase Urine RBC Urine WBC Ur Squamous Epith Cells Urine Bacteria Urine Mucus cardiology- Dr Schmid Operations: None Procedures: 2-D Echocardiogram, Cardiac catheterization Summary of Care Provided: The patient is a 57 year old F with past medical history of coronary artery disease and STEMI, schizophrenia and chronic alcohol abuse with cirrhosis. He was admitted by the ED on 04/24/2018 with a complaint of acute onset shortness of breath with assisted tachycardia and markedly elevated blood pressure. She was found to be acidotic and hyponatremic on admission and BNP was slightly elevated at 267. Chest x-ray showed interstitial edema and cardiomegaly. She was admitted and managed for hypoxic respiratory failure due to CHF exacerbation and CHF exacerbation. She was put on BiPAP after which respiratory distress resolved and she was transitioned to 3 L of oxygen by nasal cannula. She was noted to have mildly elevated troponins with troponin trending up from 0.03-0.36. EKG showed no acute ST changes; repeat EKG showed prolonged QT.. Cardiology was consulted. Hyponatremia subsequent to resolved. 2D echo done showed EF of 70% with evidence of diastolic dysfunction, normal left ventricular systolic function, mildly enlarged right atrium and left atrium and trivial tricuspid and aortic valve insufficiency. RVSP was estimated to be 37 mmHg. She subsequently had a cardiac cath on account of an [facility] and findings of which were clean coronary arteries. Initial presentation was therefore thought to be due to flash pulmonary edema due to hypertensive emergency. Patient's liver function was trivially elevated and so and a gallbladder ultrasound done showed gallstones which were asymptomatic. Patient was therefore started on atorvastatin 40 mg daily and aspirin 81 mg daily. She was also started on losartan 50 mg daily and hydrochlorthiazide 25 mg daily. She was discharged home on 04/27/18 and she is to follow-up with her primary care doctor, and cardiology. Patient seen and examined prior to discharge. She had no complaints and was very comfortable and eating a hearty breakfast. She denied any fever chills, cough or chest pain, shortness of breath, any abdominal pain, any diarrhea vomiting. Review of systems otherwise negative. o/e: Vital Signs Height 5 ft 7 in Weight: 265 lb 3.457 oz Weight in Pounds 265.2 lbs Pulse Ox 95 Temperature 98.9 F Pulse Rate 58 Respiratory Rate 16 Blood Pressure [BP] 108/75 Blood Pressure 163/77 Blood Pressure Position [BP] Sitting Blood Pressure Position Semi-Fowlers []General: Alert, Oriented x3, Cooperative, No apparent distress HEENT: Atraumatic, PERRLA, EOMI, Normocephalic Oral: Moist Mucosa Neck: Supple, No JVD, Negative Carotid Bruits Lungs: Clear to auscultation, Normal air movement, No rhonchi, No wheeze, No rales,saturating well on room air Cardiovascular: Regular rate, Regular Rhythm, Normal S1, Normal S2, No murmurs Abdomen: Bowel Sounds Present, Soft, Non Tender, Non-Distended, No Hepato- splenomegaly Extremities: No clubbing, No cyanosis, No edema, Capillary Refill Less than 3 Seconds Skin: No rashes, No breakdown Musculoskeletal: No Tenderness to Palpation of Joints or Extremities Lymphatic: No Cervical, Supraclavicular, or Inguinal Adenopathy Neurological: Cranial nerves II-XII grossly intact Psych/Mental Status: Normal Affect, Appropriate, Alert and oriented to time, place, person, mood and affect Plan as stated above. She was also started on p.o. ciprofloxacin during admission on account of possible UTI as urinalysis was consistent with UTI and she was mildly symptomatic. Based on QT prolongation per EKG, patient will be discharged home on a prescription for Bactrim for 3 days for UTI. Discharge Diet: 2000 mg Sodium Diet Discharge Activity: Return to Normal Activity Weight Bearing Status: Weight bearing as tolerated Call your doctor if you observe: Shortness of breath, Swelling in the ankles, Increased palpitations (irregular heartbeat) Home Medications: Medications to take at Discharge Multivits,Ca,Minerals/Iron/FA [Women's Daily Formula Caplet] 1 each PO DAILY 08/11 Paliperidone [Invega] 12 mg PO DAILY 09/22/16 Pristiq 50 mg PO DAILY 10/11/17 Rifaximin [Xifaxan] 550 mg PO BID tablet 10/11/17 Cyclobenzaprine [Flexeril] 10 mg PO TID PRN PRN 04/25/18 Hydroxyzine Pamoate [Vistaril] 100 mg PO QHS 04/25/18 Lactulose 15 mg PO BID 04/25/18 Propranolol HCl [Propranolol HCl ER] 60 mg PO DAILY 04/25/18 Aspirin [Aspirin, Baby] 81 mg PO DAILY@0800 #30 tab.chew 04/27/18 Atorvastatin Calcium 40 mg PO DAILY #30 tab 04/27/18 Losartan/Hydrochlorothiazide [Hyzaar 50-12.5 Tablet] 1 tab PO DAILY #30 tab 11/13 Smz/Tmp Ds [Bactrim Ds] 1 tab PO BID #6 tab 04/27/18 Following Prescrptions Were Given to Patient: Aspirin [Aspirin, Baby] 81 mg PO DAILY@0800 #30 tab.chew Atorvastatin Calcium 40 mg PO DAILY #30 tab Losartan/Hydrochlorothiazide [Hyzaar 50-12.5 Tablet] 1 tab PO DAILY #30 tab Smz/Tmp Ds [Bactrim Ds] 1 tab PO BID #6 tab Primary Care Physician: Vikram Easton MD [Primary Care Provider] - Please follow up with your Primary Care Physician in: one week Please Follow Up With: Jorge Schmid MD When: two weeks Patient Instructions: Controlling High Blood Pressure, Discharge Instructions for Malignant Hypertension, Discharge Instructions: Eating a Low-Salt Diet Disposition: Home Minutes spent on discharge:: 40 Patient Condition:: Stable Medical Necessity - Tobacco Use Smoking Status: Current every day smoker Meaningful Use Info Meaningful Use Diagnoses (Choose all that apply): CHF - CHF ANMOL/ARB ordered at discharge?: Yes Documented LVEF (%): 70 Code Visit Inpatient E&M: 83611 Disch Hosp
--- NOTE | 2018-04-27 11:11 | CASEMGMT ---
Social Work Pt ready for discharge today. Met with pt today and explained physician feels pt is ready for d/c today. Pt friend Bryson is in the room and pt states she will be going home in a taxi with Bryson and he agrees with this. Pt states she does not want Amanda to pick her up. Phone call to Trice at [facility] and she states Michelle Fried CM is attempting to contact POA to set up appointment to visit pt tomorrow. Although pt states she does not want to see Amanda, she does agree to phone call to Amanda to update her on the discharge plan. Phone call to Amanda and explained pt will be going home today via cab with Bryson and that Michelle Fried CM is attempting to contact POA ([facility], Amanda's ) to set up appointment to see pt tomorrow. Amanda expresses understanding and agreement with plan. met with pt and informed her that Amanda is aware that she is returning home and that CM from [facility] will visit tomorrow. Pt is agreeable. DAVID Zafar
== END 2018-04-27 12:07 | disposition home or self-care (01) | DRG 286 ==
LOC: ED 21:59 → PCU 23:52
PROVIDERS: Internal Medicine Cardiovascular Disease; Admitting Provider Family Medicine; Emergency Provider Emergency Medicine; Family Provider Family Medicine; PCP Family Medicine; Visit Provider Student in an Organized Health Care Education/Training Program
DX: I11.0 Hypertensive heart disease with heart failure (principal); J96.01 Acute respiratory failure with hypoxia; I16.1 Hypertensive emergency; E87.2 Acidosis; E87.1 Hypo-osmolality and hyponatremia; Z68.41 Body mass index [BMI] 40.0-44.9, adult; N39.0 Urinary tract infection, site not specified; I45.81 Long QT syndrome; E87.6 Hypokalemia; I50.33 Acute on chronic diastolic (congestive) heart failure; K70.30 Alcoholic cirrhosis of liver without ascites; R73.9 Hyperglycemia, unspecified; F20.9 Schizophrenia, unspecified; F10.21 Alcohol dependence, in remission; F17.200 Nicotine dependence, unspecified, uncomplicated; E66.9 Obesity, unspecified; I25.2 Old myocardial infarction; Z79.82 Long term (current) use of aspirin; Z79.899 Other long term (current) drug therapy; Z87.440 Personal history of urinary (tract) infections
CPT/HCPCS: 36415; 36600; 71045; 71046; 76705; 80048; 80061; 80076; 81001; 82803; 83735; 83880; 84484; 85025; 85610; 85730; 93005; 93306; 93458; 94002; 94003; 94640; 97161; 97165; 99283; 99406; Q9957; Q9967; A4216; C1769; C1894; J1940

== ENCOUNTER → 2018-06-07 09:32 | Outpatient (CLI) | payer MEDICARE, SELFPAY ==
--- NOTE | 2018-06-07 09:39 | MRI_ITS ---
STUDY: MRI LUMBAR SPINE WITHOUT CONTRAST REASON FOR EXAM: Female, 57 years old. Back pain with bilateral leg numbness. TECHNIQUE: Standardized fat and water weighted pulse sequences were obtained in the sagittal and axial planes. COMPARISON: None FINDINGS: T12-L1: Normal endplates. Normal disc height, signal and morphology. Normal bilateral facet joints. Normal central canal and bilateral lateral recesses. Normal bilateral intervertebral neural foramina. Normal lumbar lordosis. There is no substantial scoliosis. Normal conus medullaris that terminates at the T12-L1 level. L1-2: Normal endplates. Normal disc height, signal and morphology. Normal bilateral facet joints. Normal central canal and bilateral lateral recesses. Normal bilateral intervertebral neural foramina. L2-3: Normal endplates. Normal disc height, signal and morphology. There is mild degenerative arthropathy of bilateral facet joints. Normal central canal and bilateral lateral recesses. Normal bilateral intervertebral neural foramina. L3-4: There is mild annular disk bulge and osteophyte complex. There is mild degenerative arthropathy of the facet joints. Bilateral neuroforamina are narrowed without MR evidence for nerve impingement. There is no significant acquired central canal stenosis. L4-5: There is mild annular disk bulge and osteophyte complex. There is moderate degenerative arthropathy of the facet joints. Bilateral neuroforamina are narrowed without MR evidence for nerve impingement. There is mild acquired central canal stenosis. L5-S1: Normal endplates. Normal disc height, signal and morphology. There is mild degenerative arthropathy of bilateral facet joints. Normal central canal and bilateral lateral recesses. Normal bilateral intervertebral neural foramina. Normal visualized sacral ala. Normal visualized paraspinous soft tissue structures. MRI/Spine Lumbar (Routine) IMPRESSION: Multilevel degenerative disc disease and a degenerative arthropathy of the lumbar spine with acquired canal stenosis and neuroforaminal narrowing, as described. Electronically Signed: Alejandra Pelletier MD at 11:42 EDT , Service support ,
--- NOTE | 2018-06-07 09:39 | MRI_ITS ---
STUDY: MRI CERVICAL SPINE WITHOUT CONTRAST REASON FOR EXAM: Female, 57 years old. Neck pain and bilateral arm numbness. TECHNIQUE: Standardized fat and water weighted pulse sequences were obtained in the sagittal and axial planes. Multiple images are limited by patient motion. COMPARISON: Prior comparable comparison studies are not available for review at this time. FINDINGS: Normal foramen magnum and brainstem-cervical cord junction. Normal craniovertebral junction. Normal anterior atlantoaxial articulation. Normal odontoid process. Normal cervical lordosis. Normal vertebral bodies and posterior osseous elements. C2-3: There is a mild disc bulge and osteophyte complex. The neural foramina are patent. There is no evidence for nerve impingement or significant canal stenosis. C3-4: There is mild disc bulge and osteophyte complex. There are no foramina are narrowed, severely on the left with potential nerve root impingement. There is no significant central acquired canal stenosis. C4-5: Axial images at this level are significantly limited by patient motion and neural foramina cannot be evaluated. C5-6: Axial images of this level are nondiagnostic. C6-7: Axial images at this level are nondiagnostic. C7-T1: Normal endplates. Normal disc height, signal and morphology. Normal central canal and intervertebral neural foramina. The cervical spinal cord has joint normal appearance. There is a extra-axial mass at T1-T2 measuring 1.6 x 1.5 x 0.9 cm. This appears to severely compress the spinal cord at this level and probably causes impingement. The mass has increased T2 signal and appears isointense to spinal cord on the T1-weighted images. There is no demonstrated cervical cord syrinx cavity. Normal visualized soft tissue structures. MRI/Spine Cervical (Routine) IMPRESSION: 1. Technically limited MRI due to patient motion. 2. Intradural extramedullary mass at T1-T2 likely representing a meningioma and probably causes severe spinal cord compression at this level. Electronically Signed: Alejandra Pelletier MD at 12:03 EDT , Service support ,
== END ==
PROVIDERS: Family Provider Family Medicine; PCP Family Medicine; Visit Provider Anesthesiology Pain Medicine
DX: M54.2 Cervicalgia (principal); M79.603 Pain in arm, unspecified
CPT/HCPCS: 72141; 72148

== ENCOUNTER 2018-07-04 12:52 | Emergency (ER) | payer MEDICARE, SELFPAY ==
[2018-07-04 12:53] VITALS: BP 113/74; PULSE 64; RESP 18; TEMP 36.8; O2SAT 97; BMI 41.8
--- NOTE | 2018-07-04 12:57 | EKG12_ITS ---
Test Reason : CP Blood Pressure : / mmHG Vent. Rate : 063 BPM Atrial Rate : 063 BPM P-R Int : 120 ms QRS Dur : 098 ms QT Int : 450 ms P-R-T Axes : 022 008 050 degrees QTc Int : 460 ms Normal sinus rhythm Minimal voltage criteria for LVH, may be normal variant Borderline ECG Confirmed by ARIANA NICHOLE, ALEXIA ([id number]), newspaper copy editor MAGY RICHARDS ([id number]) on 07/06/2018 1:46:53 PM Referred By: CELY Confirmed By:ALEXIA LANE MD
[2018-07-04 13:00] VITALS: BP 132/65; PULSE 67; RESP 16; O2SAT 97
--- NOTE | 2018-07-04 14:13 | ED.VISSUMM ---
- ER Visit Summary Date of Service: 07/04/18 Chief Complaint: Anxiety History of Present Illness: The patient is a 57 F who feels anxious for the past few days started hyperventilating in the shower. She has no chest pain shortness of breath fever chills. She has chronic anxiety schizophrenia and bipolar but she has no homicidal or suicidal ideations and she has no current hallucinations. Physical Examination: Patient has a normal exam with a flat affect and again no suicidal ideations. She seems slightly anxious. rtment Course and Treatment: Patient will receive Vistaril, Ativan and discharged in stable condition Charge stable condition Impression: [Anxiety] This note was generated with [employer] dictation software. It may contain incorrect words, spelling, and punctuation that were not noted in review of the chart prior to signing ED Disposition - Plan for ED Patient: Disposition: Home or Assisted Living Chief Complaint: Anxiety Instructions: ED Stress React Prescriptions: Hydroxyzine Pamoate [Vistaril] 50 mg PO 4X/DAY PRN PRN #30 cap PRN Reason: Anxiety Referrals: Zaheer Thakkar MD [Primary Care Provider] - 2 Days
--- NOTE | 2018-07-04 14:16 | ED.DCSUM_ITS ---
- ER Visit Summary Date of Service: 07/04/18 Chief Complaint: Anxiety History of Present Illness: The patient is a 57 F who feels anxious for the past few days started hyperventilating in the shower. She has no chest pain shortness of breath fever chills. She has chronic anxiety schizophrenia and bipolar but she has no homicidal or suicidal ideations and she has no current hallucinations. Physical Examination: Patient has a normal exam with a flat affect and again no suicidal ideations. She seems slightly anxious. rtment Course and Treatment: Patient will receive Vistaril, Ativan and discharged in stable condition Charge stable condition Impression: [Anxiety] This note was generated with [employer] dictation software. It may contain incorrect words, spelling, and punctuation that were not noted in review of the chart prior to signing ED Disposition - Plan for ED Patient: Disposition: Home or Assisted Living Chief Complaint: Anxiety Instructions: ED Stress React Prescriptions: Hydroxyzine Pamoate [Vistaril] 50 mg PO 4X/DAY PRN PRN #30 cap PRN Reason: Anxiety Referrals: Zaheer Thakkar MD [Primary Care Provider] - 2 Days
[2018-07-04] MEDS: diazePAM 5 MG Tablet PO (14:30)
--- NOTE | 2018-07-04 17:43 | CM.ED ---
Social Work Note Request from PD to come to multi-specialty physician entrance because of a situation with a legal guardian. Face to face with pt and her legal guardian, Amanda. Introduced self and role at [facility]. Officer states that the pt was alert and oriented, and then while waiting for SW to get downstairs the pt started shouting the Amanda was the child of the devil and that she, the pt, was linnette and had been crucified in March. Pt was able to identify self, place, and date. She had come to the ED for anxiety and per the pt was given Valium. She had an appointment with Dr. Alarcon at 1530, and according to Amanda, she called Dr. Alarcon's office and because the pt had Valium they wanted to reschedule for next week. Pt became upset and starts stating that Amanda is just going to go out do drugs and republican, and I am going to be alone. Inquire if the pt does not feel safe returning home, but she states that she does and she will be alone. Amanda states that this is the pt's baseline, and has been since about February. Reports that she sees Yanet Milton, psychiatrist at [facility]. Pt denies SI, HI, or hallucinations. Eventually pt is deescalated and agreeable to return home with Amanda. Amanda thanks staff and transports pt home. Estrella Mckeon, SHOP SUPERINTENDENT, LOCK UP WORKER
[2018-07-04 23:41] VITALS: BP 153/97; PULSE 72; RESP 18; TEMP 36.7; O2SAT 94; BMI 41.8
--- NOTE | 2018-07-05 01:11 | ED.RN ---
SPOKE WITH GUARDIAN AT THIS TIME. GUARDIAN STATES PATIENT WAS SEEN EARLIER TODAY IN ER AND WAS DRUNK SEEKING AND HAD TO BE REMOVED BY POLICE FROM PROPERTY. LAQUITA WAS LEGAL GUARDIAN CONTACTED. ADVISED IF THERE IS NO EMERGENT LIFE THREATENING CONDITION PATIENT DOES NOT NEED TO BE IN THE ER AND HAS BEEN CALLING 911 ALL NIGHT LOOKING FOR MEDICATIONS AND HAS CALLED FOR THE [facility] 3 TIMES TONIGHT.
--- NOTE | 2018-07-05 01:55 | ED.RN ---
SPOKE WITH DR. NUNN ABOUT PATIENTS LEGAL GUARDIAN REFUSING CARE AND MEDICAL TREATMENT. PATIENT ASSESSMENT UNREMARKABLE BY NURSING STAFF. PATIENT AT THIS TIME HAS BEEN MEDICALLY CLEARED. SINCE PATIENTS LEGAL GUARDIAN IS REFUSING CARE THE PATIENT IS TO BE SENT HOME AT THIS TIME. AND TO SPEAK WITH LEGAL GUARDIAN ABOUT FURTHER CARE. LEGAL GUARDIAN WAS MADE AWARE AT THIS TIME
== END 2018-07-04 14:37 | disposition home or self-care (01) ==
PROVIDERS: Emergency Provider Emergency Medicine; Family Provider Family Medicine; PCP Family Medicine
DX: F41.9 Anxiety disorder, unspecified (principal); Z72.0 Tobacco use; G89.29 Other chronic pain; Z79.899 Other long term (current) drug therapy; F20.9 Schizophrenia, unspecified
CPT/HCPCS: 93005; 99283; 99284

== ENCOUNTER 2018-10-03 13:00 | Outpatient (RCR) | payer MEDICARE, SELFPAY ==
--- NOTE | 2018-09-05 14:41 | HP.PTEVAL_ITS ---
Patient's Visit Information MARIANA BLACKWOOD is a 57 year old F referred to Physical Therapy by Vikram Easton with a diagnosis of ATAXIA,MENINGIOMA. Date of Evaluation: 09/05/18 Physical Therapist: Arturo Rolle PT, - Visit Plan Frequency: 2x /Week Duration: 4 Weeks Plan: Patient has multiple comorbities with pschological issues influences patient condition. gait training,balance training,UE/LE strengthening,postural ex's ,general conditionin - Subjective Findings: This 57 y/o female presents to physical therapy with ataxia and menigioma. Patient underwent s/p meningioma tumor removed from upper spine on 08/01/18 done at [facility]. Intially,patient seen DR Aron riley but had MRI found tumor. Reffered to spine neorologist specialist at [facility]. Patient was intially admitted 07/24/18 then d/c Jul.Then was d/c [facility] for [facility]hab then released home . Jul. Currently ,patient mainly stays in bed not very active. Patient has home care program [facility] 2 xday 5 days /week 4 hours/day. Patient multiple comorbities pshycolgical . Patient has h/o drug and ETOH abuse.Patient symptoms affect QOL and function.Patient needs assistance with ADL'S ,dressing,bathing ,housework tasks and cooking.Denies dizzinees . VOCATION: mental distablity. SOCAIL :need cargiver - Pain Bilateral Back Pain Intensity (Out of 10): Unrated Pain Intensity Range: Unrated - Objective POSTURE: mild foward posture. GAIT: mild ataxia reciprocal pattern. NEURO: denies parathesia/tingling ,reflexes 2/3. BALANCE: good -. MMT: quads/hams 4- /5,hip flexion 3+/5 hip abd 3+/5 ,ankle 4/5 - Balance Scores Functional Gait Assessment Score: 13 % Disability: 56.6700 CATSIB Score (Max score 120 seconds): 60 - Goals Goal 1:: Independant with HEP with assisit Goal Time Frame: 4-6 Weeks Goal 2:: Increase BUE/LE STRENGTH to iprove function and become more active Goal Time Frame: 4-6 Weeks Goal 3:: Patient to improve functional endurance for activity to fair+ Goal Time Frame: 4-6 Weeks Goal 4:: Patient to improve ablity to assist with ADL'S Goal Time Frame: 4-6 Weeks Goal 5:: Patient to improve LFES score by 5 points to improve QOL Goal Time Frame: 4-6 Weeks Goal 6:: Patient to improve CATSIB and functional gait score by 5 points - Rehabilitation Potential Physical Therapy Diagnosis: Patient had tumor removed upper c-spine with impairment of walking,weakness ,motivation. and multiple comorbities pschyological influence condition thus benifit from skilled PT Rehabilitation Potential: Good - Anticipated Interventions Patient/Client Instruction: Educate patient on: Condition, Plan of Care For the Purpose of:: To decrease pain, To increase ROM, To improve muscle performance and motor function, To increase tolerance to activity/condition/position, To improve performance and independence with ADL's, To improve ability of physical actions for home/community/work/leisure, To improve gait and locomotor functions, To improve endurance, To improve balance, To improve safety with gait, To assume or resume ADL's, To improve tolerance to ADL's Therapeutic Exercise to Include: Strength training, Endurance training, Balance training, Coordination, Postural training, Gait and locomotor training For the Purpose of:: To decrease pain, To increase ROM Thank you for the opportunity to evaluate your patient. For Medicare and Medicare HMO plans, please review the plan of care and approve it. It will need to be FAXED BACK to us at [phone] for Medicare purposes. For Medicare only, by signing this I certify the plan of care. Please let me know if there are questions or concerns regarding this plan of care. Physician Signature: Date:
--- NOTE | 2018-10-03 13:26 | HP.PTDCSUM ---
HP - PT D/C Summary It has been my pleasure to treat MARIANA BLACKWOOD under orders from Vikram Easton MD, for the diagnosis of ATAXIA,MENINGIOMA for a total of 8 visit(s). Discharge Date: 10/03/18 Please see the following information for a summary of their discharge status. - Subjective Subjective: Doing much better with becominmg more active with ADL'S - Pain Bilateral Back Pain Intensity (Out of 10): 0 L scapular pain Pain Intensity (Out of 10): 2 - Overall Improvement % Improvement: 90 - Objective Objective/Function: POSTURE: mild foward posture. PALAPTION: unremarkable. MMT: quads/hams 4/5,hip 4-/5. BUE 4/5 ,EXCEPT SHOULDER 4-/5. SPINE MOTION WFL ALL PLANES - Goals Goal 1:: Independant with HEP with assisit Goal 2:: Increase BUE/LE STRENGTH to iprove function and become more active Goal Progress: Goal Met Goal 3:: Patient to improve functional endurance for activity to fair+ Goal Progress: Goal Met Goal 4:: Patient to improve ablity to assist with ADL'S Goal Progress: Progressing Goal 5:: Patient to improve LFES score by 5 points to improve QOL Goal Progress: Goal Met Goal 6:: Patient to improve CATSIB and functional gait score by 5 points - Plan Plan: D/C TO HEP - D/C Information Discharge Comments: HEP If there are questions or concerns regarding this patient's physical therapy, please feel free to call me at [phone]. Thank you for the referral of this patient. Sincerely, Arturo Rolle, PT, Cert MDT, OCS
== END 2018-10-03 19:00 | disposition home or self-care (01) ==
LOC: PT 13:00
PROVIDERS: Family Provider Family Medicine; Referring Provider Family Medicine; Visit Provider Family Medicine
DX: D32.9 Benign neoplasm of meninges, unspecified (principal); R27.0 Ataxia, unspecified
CPT/HCPCS: 97110; 97163

== ENCOUNTER 2018-11-03 20:31 | Emergency (ER) | payer MEDICARE, SELFPAY ==
[2018-11-03 20:32] VITALS: BP 160/104; PULSE 66; RESP 18; TEMP 36.2; O2SAT 96; BMI 43.8
[2018-11-03 21:05] LABS: Mucous, Urine 0 SEEN /hpf (<or=2+); Red Blood Cells-Urine 0 SEEN /hpf (0-5)
--- NOTE | 2018-11-03 21:06 | RAD_ITS ---
STUDY: X-RAY CHEST REASON FOR EXAM: Female, 57 years old. Breast biopsy today, pain TECHNIQUE: AP COMPARISON: 04/25/2018 FINDINGS: The lungs are clear and expanded. There is no demonstrated pleural abnormality. Normal size heart. Normal mediastinum and daniela. Normal visualized pulmonary arteries. There is atherosclerotic tortuosity of the aortic arch and descending thoracic aorta. Normal visualized thoracic spine. Normal visualized ribs, clavicles, and shoulders. There is no demonstrated abnormality of the visualized soft tissue structures of the upper abdomen. RAD/Chest 1 View (Portable) IMPRESSION: No acute cardiopulmonary process. Electronically Signed: Juanjose Bruce MD at 21:25 EST , Service support ,
[2018-11-03 21:09] LABS: Color, Urine Yellow (Yellow); Glucose, Dipstick Normal (Normal); Ketone-Dipstick Negative (Negative); Leukocyte Esterase-Dipstick 25 /ul (Negative); Nitrite-Dipstick Negative (Negative); Occult Blood-Urine Negative /ul (Negative); Protein-Dipstick Negative (Negative); Urine Bilirubin Dipstick Negative (Negative); Urine Clarity Clear (Clear); Urine Urobilinogen 1 mg/dl (Normal); Urine pH 6.5 (5.0 - 8.0)
[2018-11-03 21:17] LABS: Bacteria RARE /hpf (None Seen); Squamous Epithelial Cells - UA 0-5 SEEN /hpf (5-10); White Blood Cells 0-5 SEEN /hpf (0-5)
--- NOTE | 2018-11-04 00:07 | ED.DEP ---
ED Disposition - Plan for ED Patient: Instructions: ED Neck Back Pain General Prescriptions: Meloxicam [Mobic] 7.5 mg PO DAILY #30 tablet Referrals: Vikram Easton [Primary Care Provider] -
[2018-11-04 00:13] VITALS: PULSE 68; RESP 18; O2SAT 95; O2SAT 96
--- NOTE | 2018-11-04 00:18 | ED.VISSUMM ---
- ER Visit Summary Date of Service: 11/04/18 Chief Complaint: Back pain History of Present Illness: The patient is a 57 F presenting with lower back pain. Patient has a history of chronic low back pain. She denies bowel or bladder incontinence. Denies numbness or weakness. She states she was on Mobic but has run out of this medication. She is concerned she may have a UTI. She also complains of right breast pain. She had a right breast biopsy today per Dr. Quinn. She denies fever, shortness of breath, or other complaints. Physical Examination: Vitals are stable. Patient is afebrile. Alert no acute distress. HEENT exam is unremarkable. Neck is supple. Lungs are clear and equal bilaterally. Right breast ecchymosis, no warmth or erythema Heart is regular rate and rhythm. Back: mild paraspinal lumbar tenderness, no midline tenderness Extremities are unremarkable. Skin is warm and dry. No focal neurologic deficit. Normal strength and sensation. Normal gait. Remainder of exam is unremarkable. Emergency Department Course and Treatment: Urinalysis is unremarkable. Chest xray shows no acute process. She was given a prescription for Mobic. Advised to follow-up with her primary care physician. Advised return to ED for worsening complaints. Disposition: Discharge home Impression: Chronic back pain This note was generated with [employer] dictation software. It may contain incorrect words, spelling, and punctuation that were not noted in review of the chart prior to signing ED Disposition - Plan for ED Patient: Disposition: Home or Assisted Living Instructions: ED Neck Back Pain General Prescriptions: Meloxicam [Mobic] 7.5 mg PO DAILY #30 tablet Referrals: Vikram Easton [Primary Care Provider] -
--- NOTE | 2018-11-04 00:23 | ED.DCSUM_ITS ---
- ER Visit Summary Date of Service: 11/04/18 Chief Complaint: Back pain History of Present Illness: The patient is a 57 F presenting with lower back pain. Patient has a history of chronic low back pain. She denies bowel or bladder incontinence. Denies numbness or weakness. She states she was on Mobic but has run out of this medication. She is concerned she may have a UTI. She also complains of right breast pain. She had a right breast biopsy today per Dr. Quinn. She denies fever, shortness of breath, or other complaints. Physical Examination: Vitals are stable. Patient is afebrile. Alert no acute distress. HEENT exam is unremarkable. Neck is supple. Lungs are clear and equal bilaterally. Right breast ecchymosis, no warmth or erythema Heart is regular rate and rhythm. Back: mild paraspinal lumbar tenderness, no midline tenderness Extremities are unremarkable. Skin is warm and dry. No focal neurologic deficit. Normal strength and sensation. Normal gait. Remainder of exam is unremarkable. Emergency Department Course and Treatment: Urinalysis is unremarkable. Chest xray shows no acute process. She was given a prescription for Mobic. Advised to follow-up with her primary care physician. Advised return to ED for wor sening complaints. Disposition: Discharge home Impression: Chronic back pain This note was generated with [employer] dictation software. It may contain incorrect words, spelling, and punctuation that were not noted in review of the chart prior to signing ED Disposition - Plan for ED Patient: Disposition: Home or Assisted Living Instructions: ED Neck Back Pain General Prescriptions: Meloxicam [Mobic] 7.5 mg PO DAILY #30 tablet Referrals: Vikram Easton [Primary Care Provider] -
== END 2018-11-04 00:14 | disposition home or self-care (01) ==
LOC: ED 21:31
PROVIDERS: Emergency Provider Emergency Medicine; Family Provider Family Medicine
DX: M54.5 Low back pain (principal); G89.29 Other chronic pain; N64.4 Mastodynia; S20.01XA Contusion of right breast, initial encounter; X58.XXXA Exposure to other specified factors, initial encounter; Y93.9 Activity, unspecified; Y92.9 Unspecified place or not applicable; Y99.9 Unspecified external cause status; I25.10 Atherosclerotic heart disease of native coronary artery without angina pectoris; I11.0 Hypertensive heart disease with heart failure; I50.9 Heart failure, unspecified; Z72.0 Tobacco use; Z79.82 Long term (current) use of aspirin; Z79.899 Other long term (current) drug therapy
CPT/HCPCS: 71045; 81001; 99283

== ENCOUNTER 2019-02-10 15:58 | Emergency (ER) | payer MEDICARE, SELFPAY ==
[2019-02-10 16:01] VITALS: BP 145/90; PULSE 68; RESP 15; TEMP 36.7; O2SAT 95; BMI 44.1
--- NOTE | 2019-02-10 16:11 | NURSING ---
PT'S LEGAL GUARDIAN AND BROTHER GERMAIN VARNER CALLED; MESSAGE LEFT ON CELL PHONE.
--- NOTE | 2019-02-10 16:54 | ED.RN ---
NO RETURN CALL FROM GERMAIN STANTON; 2ND ATTEMPT MADE TO LAQUITA STANTON. MESSAGE LEFT.
--- NOTE | 2019-02-10 17:52 | ED.DCSUM_ITS ---
History of Present Illness Chief Complaint: Other, Pain/Inj Informant: Patient Onset: Yesterday Narrative: Patient presents for concern of increasing pain right breast since yesterday. Status post needle drainage [address] Lackey in [place] [facility]. Reports diagnosed with breast cancer this past November with lumpectomy and lymph node removal. She reports there is infection requiring additional procedure last month. She was seen in office 2 days ago with drainage. Reports was not discharged with medications. She is tolerated Percocet in the past. History of cirrhosis.no fever Prior similar symptoms: No Past Medical History - Allergies and Home Meds Allergies/Adverse Reactions: Allergies aripiprazole [From Abilify] Allergy (Verified 02/10/19 16:01) Other diphenhydramine [From Benadryl] Allergy (Verified 02/10/19 16:01) Itching lithium Allergy (Verified 02/10/19 16:01) Other lorazepam [From Ativan] Allergy (Verified 02/10/19 16:01) Other risperidone [From Risperdal] Allergy (Verified 02/10/19 16:01) Swelling zolpidem [From Ambien] Allergy (Verified 02/10/19 16:01) Itching quetiapine [From Seroquel] Adverse Reaction (Verified 02/10/19 16:01) Other I GET HIGH, I GET ANXIOUS, I CAN'T SLEEP Primary Care Physician: Vikram Easton [Primary Care Provider] - Surgical History: noncontributory Smoking Status: Current every day smoker - Family History Maternal Family History: Family History (Last Updated 05/22/18 @ 19:00 by Rosaura Dutta) Unknown No problems noted. Family History: Reports: No pertinent history Paternal Family History: Family History (Last Updated 05/22/18 @ 19:00 by Rosaura Dutta) Unknown No problems noted. Family History: Reports: No pertinent history Review of Systems General: Denies: Chills, Fever, Sweats Eyes: Denies: Visual changes - bilaterally, Diplopia ENT: Denies: Rhinorrhea, Sore throat Cardiovascular: Denies: Chest pain, Palpitations Respiratory: Denies: Dyspnea, Cough, Dyspnea on exertion Gastrointestinal: Denies: Abdominal pain, Nausea, Vomiting, Diarrhea, Melena, Hematochezia Genitourinary: Denies: Dysuria, Hematuria, Frequency Musculoskeletal: Denies: Back pain, Extremity Pain Skin: Denies: Rash, Wounds Neurological: Denies: Headache, Weakness, Numbness Physical Exam Vital Signs/Narrative: Vital Signs Temp Pulse Resp BP Pulse Ox 02/10/19 16:01 98.0 F 68 15 145/90 H 95 Inital Vital Signs reviewed: Yes General: Well nourished, Well developed, No Acute Distress Head: Normocephalic, Atraumatic Eyes: Perrl, EOMI ENT: Moist mucous membranes, No rhinorrhea Neck: Supple, Nontender Cardiovascular: Regular rate, Regular rhythm, No murmurs Respiratory: No distress, CTA bilaterally, Chest nontender Abdomen: Soft, Nontender, Nondistended, Normal bowel sounds Back: Nontender, Normal Inspection Extremities: Nontender, No edema Skin: Normal color, No rash, - - Right axilla upper outer breast: Dressing noted clean, dry, intact. Remove dressing, there was healed incision with no erythema no crepitus nontender to palpation. Neurological: Alert, Oriented x3, Cranial nerves II-XII grossly intact, Normal Strength, Normal Sensation Psychological: Normal affect, Normal Mood Diagnostic/Tx/Re-eval - Medical Decision Making Complaint of pain in the area, evaluation of the wound appears healing appropriately there is no signs of infection. She is on antibiotics. She was initially treated with oxycodone x1 in the ED. Patient's vital signs stable. During her evaluation today, her Sister Amanda who is guardian, discussed that she did ask Dr. Lackey for prescription for pain medicines however was told it was not indicated with this procedure. He has an appointment this coming , sister states she can call to be seen on Tuesday if need be. She agrees with withholding any opiates at this time in the ED. She will be discharged with her sister. ED Disposition - Plan for ED Patient: Disposition: Home or Assisted Living Diagnosis: Visit for wound check Instructions: Wound Care Referrals: Vikrma Easton [Primary Care Provider] - Additional Instructions: Wound is healing normal, no signs of infection. Finish your antibiotics. Your sister will call Dr. Lackey on Tuesday for follow-up if needed.
--- NOTE | 2019-02-10 18:04 | ED.RN ---
GUARDIAN LAQUITA CALLED BACK, STATES PT WAS AT SURGEON'S OFFICE YESTERDAY, HAS FOLLOW UP NEXT TUESDAY. FURTHER STATES PT HAS BEEN ASKING DR FERNANDEZ FOR OXYCODONE, DR FERNANDEZ HAS DECLINED TO PRESCRIBE AT THIS TIME. ADVISED GUARDIAN THAT PT NEEDED RIDE HOME, CRISTINA ALLEN. GUARDIAN WILL ARRANGE FOR TRANSPORTATION HOME. PHONE GIVEN TO DR NUNN FOR FURTHER DISCUSSION REGARDING PT'S CARE.
== END 2019-02-10 18:07 | disposition home or self-care (01) ==
PROVIDERS: Emergency Provider Emergency Medicine; Family Provider Family Medicine
DX: N64.4 Mastodynia (principal); Z98.890 Other specified postprocedural states; K74.60 Unspecified cirrhosis of liver; F17.200 Nicotine dependence, unspecified, uncomplicated; Z79.82 Long term (current) use of aspirin; Z79.899 Other long term (current) drug therapy; Z88.8 Allergy status to other drugs, medicaments and biological substances
CPT/HCPCS: 90471; 99283

== ENCOUNTER 2019-02-16 16:48 | Emergency (ER) | payer MEDICARE, SELFPAY ==
[2019-02-16 16:48] VITALS: BP 147/81; PULSE 67; RESP 18; TEMP 36.8; O2SAT 97; BMI 47.5
--- NOTE | 2019-02-16 17:09 | ED.RN ---
PT DRY HEAVING, THEN EMESIS X1. NEW ORDERS FOR ZOFRAN
--- NOTE | 2019-02-16 17:18 | ED.VISSUMM ---
- ER Visit Summary Date of Service: 02/16/19 Chief Complaint: [Back pain] History of Present Illness: The patient is a 58 F [presents the emergency room complaint of back pain that she has had chronically for months. Patient had some sort of a tumor on her upper back that was resected in July 2018. Patient had pain since that time. Patient initially was prescribed oxycodone for the pain and when she ran out she saw pain management who prescribed her Mobic which she states really seem to help her pain. She ran out of her pain medicine about a month ago. Patient continues to have the same pain. Patient states that she had an appointment with her primary care physician Dr. Easton today however she missed it because her sister could not give her a ride. Patient states that she was told to come to the emergency department. Patient denies any falls or injuries. She denies any fevers. She has not had any recent illnesses. She denies any pain rating down her legs. Patient states she has history of degenerative disc disease and arthritis and this is the same chronic pain she is had all along. Patient rates her pain a 10 out of 10. Patient has a history of CHF, hypertension, arthritis, cirrhosis of the liver, from a cytopenia, non-STEMI [place] history, and history of alcohol abuse.] Physical Examination: [HEENT-PERRLA, EOMI. Cranial nerves II through XII grossly intact. TMs clear. Mucous membranes moist. No adenopathy. Cardiovascular-regular rate and rhythm without murmur or ectopy Lungs-clear to auscultation, chest wall stable without crepitus or subcu emphysema Abdomen-normoactive bowel sounds, soft, nontender, no rebound or rigidity, no peritoneal signs. Back exam-patient has a 7 cm scar upper back and lower cervical region that is well-healed. No erythema or warmth noted. Patient has mild diffuse tenderness over the thoracic and lumbar spine. Patient has negative straight leg raises. Deep tendon reflexes are plus 2 out of 4 bilaterally at the patella and Achilles. Patient has normal 5 extension bilaterally. Extremities-intact ?4, normal range of motion, normal pulses, atraumatic] Test Results: [None indicated] Emergency Department Course and Treatment: [Patient was given 1 dose of Mobic. Patient states she does not want any narcotics. Patient is only here to get a prescription for Mobic until she can follow-up with Dr. Easton again.] Treatment Plan: [Follow-up with Dr. Easton in 5 to 7 days.] Disposition: [Discharged home in stable condition] Impression: [Acute exacerbation of chronic back pain] This note was generated with [employer] software. It may contain incorrect words, spelling, and punctuation that were not noted in review of the chart prior to signing ED Disposition - Plan for ED Patient: Referrals: Vikram Easton [Primary Care Provider] -
--- NOTE | 2019-02-16 17:21 | ED.DCSUM_ITS ---
- ER Visit Summary Date of Service: 02/16/19 Chief Complaint: [Back pain] History of Present Illness: The patient is a 58 F [presents the emergency room complaint of back pain that she has had chronically for months. Patient had some sort of a tumor on her upper back that was resected in July 2018. Jatinder barnes had pain since that time. Patient initially was prescribed oxycodone for the pain and when she ran out she saw pain management who prescribed her Mobic which she states really seem to help her pain. She ran out of her pain medicine about a month ago. Patient continues to have the same pain. Patient states that she had an appointment with her primary care physician Dr. Easton today however she missed it because her sister could not give her a ride. Patient states that she was told to come to the emergency department. Patient denies any falls or injuries. She denies any fevers. She has not had any recent illnesses. She denies any pain rating down her legs. Patient states she has history of degenerative disc disease and arthritis and this is the same chronic pain she is had all along. Patient rates her pain a 10 out of 10. Patient has a history of CHF, hypertension, arthritis, cirrhosis of the liver, from a cytopenia, non-STEMI [place] history, and history of alcohol abuse.] Physical Examination: [HEENT-PERRLA, EOMI. Cranial nerves II through XII grossly intact. TMs clear. Mucous membranes moist. No adenopathy. Cardiovascular-regular rate and rhythm without murmur or ectopy Lungs-clear to auscultation, chest wall stable without crepitus or subcu emphysema Abdomen-normoactive bowel sounds, soft, nontender, no rebound or rigidity, no peritoneal signs. Back exam-patient has a 7 cm scar upper back and lower cervical region that is well-healed. No erythema or warmth noted. Patient has mild diffuse tenderness over the thoracic and lumbar spine. Patient has negative straight leg raises. Deep tendon reflexes are plus 2 out of 4 bilaterally at the patella and Achilles. Patient has normal 5 extension bilaterally. Extremities-intact ?4, normal range of motion, normal pulses, atraumatic] Test Results: [None indicated] Emergency Department Course and Treatment: [Patient was given 1 dose of Mobic. Patient states she does not want any narcotics. Patient is only here to get a prescription for Mobic until she can follow-up with Dr. Easton again.] Treatment Plan: [Follow-up with Dr. Easton in 5 to 7 days.] Disposition: [Discharged home in stable condition] Impression: [Acute exacerbation of chronic back pain] This note was generated with [employer] dictation software. It may contain incorrect words, spelling, and punctuation that were not noted in review of the chart prior to signing ED Disposition - Plan for ED Patient: Referrals: Vikram Easton [Primary Care Provider] -
--- NOTE | 2019-02-16 17:21 | ED.DEP ---
ED Disposition - Plan for ED Patient: Instructions: ED Neck Back Pain General Prescriptions: Meloxicam [Mobic] 7.5 mg PO DAILY #30 tab Referrals: Vikram Easton [Primary Care Provider] - 5-7 Days
--- NOTE | 2019-02-16 17:41 | ED.RN ---
CALLED LAQUITA NOONAN. DR NIX DISCUSSED PLAN OF CARE WITH PT. GUARDIAN REPORTS THAT SHE IS UNABLE TO CUSTOM WOOD STAIR BUILDER PATIENT AT THIS TIME AND UNABLE TO ARRANGE TRANSPORTATION AT THIS TIME. PT DISCHARGED, AND ASSISTED TO WAITING ROOM. SOCIAL WORK AWARE OF PT TRANSPORTATION ISSUES.
[2019-02-16] MEDS: Meloxicam 7.5 MG Tablet PO (17:49)
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
== END 2019-02-16 17:52 | disposition home or self-care (01) ==
LOC: ED 17:50
PROVIDERS: Emergency Provider Emergency Medicine; Family Provider Family Medicine
DX: M54.9 Dorsalgia, unspecified (principal); G89.29 Other chronic pain; M54.2 Cervicalgia; I11.0 Hypertensive heart disease with heart failure; I50.9 Heart failure, unspecified; K74.60 Unspecified cirrhosis of liver; M19.90 Unspecified osteoarthritis, unspecified site; Z79.82 Long term (current) use of aspirin; Z79.899 Other long term (current) drug therapy; I25.2 Old myocardial infarction; Z72.0 Tobacco use
CPT/HCPCS: 99283

== ENCOUNTER 2019-03-12 17:19 | Emergency (ER) | payer MEDICARE, SELFPAY ==
[2019-03-12 17:20] VITALS: BP 162/97; PULSE 68; RESP 17; TEMP 36.9; O2SAT 95; BMI 44.1
--- NOTE | 2019-03-12 17:22 | ED.RN ---
PER EMS, PT NEEDED A RIDE [place] SO SHE CALLED EMS TO GET THERE.
--- NOTE | 2019-03-12 17:38 | ED.RN ---
JESSICA TAYLOR CALLED ZEINAB ARRIOLA HAD NOTE THAT STATED POSSIBLE ADMISSION OF MARIANA BLACKWOOD TOMORROW TO [place].
--- NOTE | 2019-03-12 18:24 | CM.ED ---
SOCIAL WORK INFORMANT: DR. WATT AND NURSE, ALEJANDRO REASON FOR REFERRAL: D/C PLANNING UPDATED BY NURSING AND DR. WATT, PATIENT WANTING TO GO TO [facility]. NURSE CALLED [facility] AND WAS INFORMED NO ADMISSION TODAY, POSSIBLE ADMISSION TOMORROW. PATIENT KNOWN TO THIS WORKER FROM PREVIOUS VISIT IN JANUARY. PATIENT LIVES HOME ALONE WITH ASSISTANCE FROM FAMILY. PATIENT WITH GUARDIAN/SISTER, LAQUITA STANTON [phone]. THIS WORKER AND NURSE CALLED SISTER TO DISCUSS D/C PLANNING AND TREATMENT IN ED. NURSE OBTAINED CONSENT FOR TREATMENT OVER THE PHONE FROM SISTER. [facility] HAD PATIENT AT PCP'S OFFICE THIS MORNING AND PLAN IS FOR [facility]. [facility] WILL BE TAKING PATIENT TO [facility] ONCE BED IS CONFIRMED AND PATIENT ACCEPTED. [facility] REQUESTING PATIENT NOT BE GIVEN NARCOTICS D/T HX OF SUBSTANCE ABUSE. FAMILY TO PROVIDE TRANSPORTATION HOME UPON D/C. DR. WATT MADE AWARE OF PATIENT'S STATUS. THIS WORKER TO REMAIN AVAILABLE FOR ANY FURTHER NEEDS. PLAN: HOME WITH TRANSPORTATION FROM FAMILY. AILYN KURTZ, REFRIGERATOR CAR ICER, CAD INTERN.
[2019-03-12] MEDS: Ibuprofen 200 MG Tablet PO (18:47)
--- NOTE | 2019-03-12 18:56 | ED.DCSUM_ITS ---
History of Present Illness Chief Complaint: Back Narrative: Patient presenting for evaluation secondary to back pain. Patient reports that she has chronic all over pain. She reports that this is been getting worse recently. She reports that she is on Mobic for this and it has been alleviating her pain. She reports that she spoke with her primary care physician who was going to arrange her to get admitted to a long term for rehab. She states that she was supposed to go there tonight, so she called police, and when they could not transport her they contacted EMS who brought her to the emergency department. Patient denies any numbness weakness bowel or bladder incontinence fevers. Review of systems otherwise negative. Past Medical History - Allergies and Home Meds Allergies/Adverse Reactions: Allergies aripiprazole [From Abilify] Allergy (Verified 03/12/19 17:19) Other diphenhydramine [From Benadryl] Allergy (Verified 03/12/19 17:19) Itching lithium Allergy (Verified 03/12/19 17:19) Other lorazepam [From Ativan] Allergy (Verified 03/12/19 17:19) Other risperidone [From Risperdal] Allergy (Verified 03/12/19 17:19) Swelling zolpidem [From Ambien] Allergy (Verified 03/12/19 17:19) Itching quetiapine [From Seroquel] Adverse Reaction (Verified 03/12/19 17:19) Other I GET HIGH, I GET ANXIOUS, I CAN'T SLEEP Primary Care Physician: Vikram Easton [Primary Care Provider] - As Needed Surgical History: noncontributory Smoking Status: Current every day smoker - Family History Maternal Family History: Family History (Last Updated 05/22/18 @ 19:00 by Rosaura Dutta) Unknown No problems noted. Family History: Reports: No pertinent history Paternal Family History: Family History (Last Updated 05/22/18 @ 19:00 by Rosaura Dutta) Unknown No problems noted. Family History: Reports: No pertinent history Review of Systems All systems negative except as indicated Musculoskeletal: Reports: Back pain Physical Exam Vital Signs/Narrative: Vital Signs Temp Pulse Resp BP Pulse Ox 03/12/19 17:20 98.5 F 68 17 162/97 H 95 General: Well nourished, Well developed Head: Normocephalic, Atraumatic Eyes: Perrl, EOMI ENT: Moist mucous membranes, No rhinorrhea Neck: Supple, Nontender Cardiovascular: Regular rate, Regular rhythm, No murmurs Respiratory: No distress, CTA bilaterally, Chest nontender Abdomen: Soft, Nontender, Nondistended, Normal bowel sounds Back: Normal Inspection, Nontender - No reproducible pain is noted. 5 out of 5 strength at the hip knee ankle and foot. Normal sensation over all dermatomes. Normal reflexes normal distal pulses. Straight leg raise is negative. Extremeties: Nontender, No edema, - Skin: Normal color, No rash Neuro: Alert, Oriented, Normal Strength, Normal Sensation, Normal DTR, Normal Gait Psychological: Normal affect Diagnostic/Tx/Re-eval - Medical Decision Making Patient presented secondary to allover pain. Patient has notes in the computer that she has a guardian. We discussed the patient's case with her guardian, and she reports that she typically will report to hospitals shopping for medication. She does have an arrangements to go to a long term tomorrow for rehab, but at this point I do not see any indication for acute admission of this patient. Patient was offered Tylenol. Patient was discharged. Disposition: Home ED Disposition - Plan for ED Patient: Disposition: Home or Assisted Living Diagnosis: Chronic back pain Instructions: ED Back Care Tips Referrals: Vikram Easton [Primary Care Provider] - As Needed Additional Instructions: Followup with [facility] tomorrow for rehab
--- NOTE | 2019-03-12 19:03 | ED.RN ---
JESSICA TAYLOR CALLED LAQUITA-PT'S LEGAL GUARDIAN TO OBTAIN CONSENT FOR TREATMENT. AT THE TIME OXYIR 10MG HAD BEEN ORDERED BY DR. WATT. LAQUITA STATES SHE'S BEEN SEEN MULTIPLE TIMES, BY MULTIPLE DIFFERENT DOCTORS FOR THIS SAME PAIN. SHE WAS GIVEN MELOXICAM ABOUT 1 MONTH AGO AND HAS BEEN TAKING THAT FOR THE PAIN. SHE'S REFUSED TO GO TO RADIATION THERAPY YESTERDAY AND TODAY. SHE KEEPS SEEKING OUT PAIN MEDICATION EVERYWHERE SHE GOES FOR THE LAST MONTH, THAT'S PART OF WHY SHE'S GOING TO [facility]. IS THE OXYIR NECESSARY FOR THE PAIN SHE'S HAVING OR IS SHE SEEKING IT OUT? SHE HAS A SIGNIFICANT HISTORY OF DRUG AND ALCOHOL ADDICTION SO IF IT'S NOT NECESSARY, I DON'T WANT HER TO HAVE IT JESSICA TAYLOR STATES SHE'S DESCRIBING THIS CHRONIC PAIN THAT ISN'T ANY DIFFERENT OR NEW AT ALL. I'LL TALK WITH THE DOCTOR AND SEE WHAT HIS PLAN OF ACTION IS AND THEN I WILL GIVE YOU A CALL BACK. LAQUITA STATES THAT SOUNDS LIKE A GOOD PLAN I'LL TALK TO YOU THEN JESSICA TAYLOR THEN TALKS WITH DR. WATT WHO DISCONTINUES OXYIR AND ORDERS TYLENOL. JESSICA TAYLOR THEN CALLS LAQUITA. LAQUITA STATES SHE CAN'T HAVE TYLENOL BECAUSE SHE HAS CIRRHOSIS OF THE LIVER JESSICA TAYLOR STATES OK I WILL MAKE SURE THE DOCTOR KNOWS THAT AND HE CAN CHANGE THE ORDER. HE MAY NOT GIVE HER ANYTHING ELSE AND JUST DISCHARGE HER, I'M NOT SURE, BUT I'LL CALL YOU BACK AND LET YOU KNOW. DO YOU KNOW IF THERE'S ANYONE WHO IS ABLE TO TAKE HER HOME? LAQUITA STATES I'LL DO MY BEST TO GET THERE QUICKLY I CAN JESSICA TAYLOR STATES OK I'LL CALL YOU BACK AND LET YOU KNOW JESSICA TAYLOR THEN TALKS WITH DR. WATT WHO ORDERS 200MG MOTRIN INSTEAD OF TYLENOL. JESSICA TAYLOR CALLS LAQUITA AND STATES SO DR. WATT WOULD LIKE TO GIVE HER 200MG IBUPROFEN, IS THAT OK? LAQUITA STATES YES THAT IS OK JESSICA TAYLOR STATES OK WE WILL GIVE HER THE IBUPROFEN AND HER DISCHARGE PAPERS AND THEN SHE WILL BE IN THE WAITING ROOM FOR WHEN YOU GET HERE LAQUITA STATES OK I'LL BE THERE SOON I CAN JESSICA TAYLOR THEN GETS IBUPROFEN FOR PT. PT STATES THIS ISN'T GOING TO DO ANYTHING, I'VE BEEN IN THIS PAIN SO LONG JESSICA TAYLOR STATES WE TALKED WITH YOUR GUARDIAN AND THE DOCTOR AND THIS IS OUR ONLY OPTION RIGHT NOW, SO DO YOU WANT TO TRY THIS? PT STATES SURE I'LL TRY IT, BUT IT'S NOT GOING TO DO ANYTHING, I USUALLY TAKE 4 OF THEM AT HOME JESSICA TAYLOR STATES THIS IS OUR OPTION RIGHT NOW AND THEN WE'RE GOING TO GET YOUR DISCHARGE PAPERS AND YOUR SISTER IS GOING TO COME GET YOU PT WAITS APPROX 5 MINUTES AND COMES INTO HALLWAY AND LOOKS TO NURSES STATION. JESSICA TAYLOR THEN STATES I HAVE YOUR DISCHARGE PAPERS, DO YOU WANT THEM AND YOU CAN WAIT IN THE WAITING ROOM? PT STATES YES JESSICA TAYLOR REVIEWS PAPERWORK. PT DENIES QUESTIONS AND WALKS OUT INTO WAITING ROOM.
== END 2019-03-12 19:03 | disposition home or self-care (01) ==
PROVIDERS: Emergency Provider Emergency Medicine; Family Provider Family Medicine
DX: M54.9 Dorsalgia, unspecified (principal); G89.29 Other chronic pain; F17.200 Nicotine dependence, unspecified, uncomplicated; Z79.82 Long term (current) use of aspirin; Z79.899 Other long term (current) drug therapy; Z88.8 Allergy status to other drugs, medicaments and biological substances
CPT/HCPCS: 99284

== ENCOUNTER 2020-09-05 14:20 | Emergency (ER) | payer MEDICARE, MEDICAID, SELFPAY ==
[2020-08-07 09:28] VITALS: BMI 44.1
[2020-09-05] VITALS (19 sets, daily range): BP systolic 76–130; BP diastolic 45–87; PULSE 56–99; RESP 12–36; TEMP 35.6–36.8; O2SAT 96–100; BMI 43.7
--- NOTE | 2020-09-05 14:27 | EKG12_ITS ---
Test Reason : FALL Blood Pressure : / mmHG Vent. Rate : 088 BPM Atrial Rate : 088 BPM P-R Int : 098 ms QRS Dur : 094 ms QT Int : 392 ms P-R-T Axes : -08 000 035 degrees QTc Int : 474 ms Sinus rhythm with short GA Minimal voltage criteria for LVH, may be normal variant Borderline ECG Confirmed by ARIANA NICHOLE, ALEXIA ([id number]), associate entertainment editor NORBERTO CALVIN ([id number]) on 09/10/2020 9:25:55 AM Referred By: KATHY Confirmed By:ALEXIA LANE MD
[2020-09-05 15:00] LABS: Bacteria 0 SEEN /hpf (None Seen); Mucous, Urine 0 SEEN /hpf (<or=2+); Squamous Epithelial Cells - UA 0 SEEN /hpf (5-10)
--- NOTE | 2020-09-05 15:00 | CM.ED ---
SOCIAL WORK Updated by nursing on patient's condition. Patient resides at [facility] and had been found down in room. Nursing reports patient stated has not seen aide since Tuesday and believes to have only been down for 1 hour. Nursing reports from patient's skin condition and wounds believes patient to have been down longer. Call to [facility] department, spoke with Baron Pimentel. Updated on patient's condition and concerns for patient's care. Baron reports will need to follow the direction of patient's legal guardian for investigation and will be calling legal guardian, Rossi Moon on Tuesday morning. Call to patient's legal guardian, Rossi Moon. Per Rossi, normally speaks to patient daily. Patient resides in and independent living apartment. Rossi reports patient has care provider in her apartment M-F, but due to the aide having COVID-19 testing, she has not been in since Tuesday at 1pm. Rossi reports called patient yesterday and she did not answer. When patient did not answer today, Rossi states called and requested someone go in to check on patient. Rossi requesting phone call from nurse to update on status when able. Informed Rossi this worker has made report to [facility]. Rossi verbalized understanding. Plan: Admit Gina De La O, TURNTABLE WORKER, CLAM TREADER
--- NOTE | 2020-09-05 15:12 | ED.DCSUM_ITS ---
History of Present Illness Chief Complaint: Fall Informant: Patient, Grinding Wheel Inspector Narrative: Patient is a 59-year-old female with a past medical history of liver cirrhosis, alcohol abuse, CHF, schizophrenia who presents to the emergency department for being found down at her home. It was an unknown downtime but could be up to 2 days. She had a package sitting on her doorstep so somebody went to check on her. Patient does not recall what happened. Never EMS arrived she was satting in the mid 80s. She states that she has been having some abdominal pain and pain in her lower extremities. She does feel short of breath. Patient is very disheveled, has a diaper on it has not been changed what appears to be a long time. She has many decubitus ulcers. Apparently when paramedics arrived her legs were tucked up underneath of her lying on the floor. She states that she cannot move her left leg but does have sensation of it. She is denying any significant back pain. She denies any fevers. Past Medical History - Allergies and Home Meds Allergies/Adverse Reactions: Allergies aripiprazole [From Abilify] Allergy (Verified 08/07/20 09:29) Other diphenhydramine [From Benadryl] Allergy (Verified 08/07/20 09:29) Itching lithium Allergy (Verified 08/07/20 09:29) Other lorazepam [From Ativan] Allergy (Verified 08/07/20 09:29) Other risperidone [From Risperdal] Allergy (Verified 08/07/20 09:29) Swelling zolpidem [From Ambien] Allergy (Verified 08/07/20 09:29) Itching quetiapine [From Seroquel] Adverse Reaction (Verified 08/07/20 09:29) Other I GET HIGH, I GET ANXIOUS, I CAN'T SLEEP Primary Care Physician: Vikram Easton [Primary Care Provider] - Prior records reviewed: Yes Surgical History: noncontributory Smoking Status: Current every day smoker - Family History Maternal Family History: Family History (Last Reviewed 08/07/20 @ 09:39 by Emeli Britt) Unknown No problems noted. Family History: Reports: No pertinent history Paternal Family History: Family History (Last Reviewed 08/07/20 @ 09:39 by Emeli Britt) Unknown No problems noted. Family History: Reports: No pertinent history Review of Systems All systems negative except as indicated General: Denies: Fever Cardiovascular: Denies: Chest pain Respiratory: Reports: Dyspnea, Cough Gastrointestinal: Reports: Abdominal pain. Denies: Nausea, Vomiting Genitourinary: Reports: Dysuria Musculoskeletal: Reports: Extremity Pain Skin: Reports: Rash, Wounds Neurological: Denies: Headache Physical Exam Vital Signs/Narrative: Vital Signs Temp Pulse Resp BP Pulse Ox 09/05/20 14:56 96.4 F L 99 09/05/20 14:43 96.5 F L 79 26 H 100/54 L 99 09/05/20 14:27 96.1 F L 99 09/05/20 14:26 97.5 F L 80 21 H 100/54 L 96 Inital Vital Signs reviewed: Yes General: Unkempt, Acute Distress Head: Normocephalic, Atraumatic Eyes: Perrl, EOMI ENT: No rhinorrhea Neck: Supple, Nontender Cardiovascular: Regular rate, Regular rhythm, No murmurs Respiratory: No distress, CTA bilaterally, Chest nontender Abdomen: Soft, Nontender, Nondistended Back: Nontender, Normal Inspection Extremities: - - Compartments do feel soft of lower extremities. She has ulceration over the left dorsal pedis pulse but does have a good posterior tibial. Sensation is intact. Extremity does feel warm. Skin: Jaundice, - - Stage II decubitus ulcer over the sacrum. This does extend over most of the buttocks. This does go down the left thigh. Has ulceration of the left dorsal foot and medial aspect of right dorsal foot. Neurological: Alert, Normal Sensation, - - Patient not oriented to time but does answer questions appropriately.. Negative for: Normal Strength - Difficulty moving her left toes. Does have good talent development consultant strength bilaterally. Able to wiggle her right toes but cannot move her left. Psychological: Normal affect, Normal Mood Diagnostic/Tx/Re-eval Chest X-Ray - ED: - - Single view portable x-ray interpreted by myself. Clear lung malcolm bilaterally. No pleural effusions. Normal mediastinum. No acute cardiopulmonary abnormality. Patient is rotated. - EKG Initial EKG Interpretation: - - Rate of 88 bpm and normal sinus rhythm. Has a short WA interval of 98. Otherwise normal intervals. Normal axis. No significant ST elevations or depressions. No T wave abnormalities. - Medical Decision Making Patient presents to the ED after being found down. Her legs were tucked underneath of her. She is having difficult time moving her left foot. Upon arrival to the emergency department she has low blood pressure, she was mildly hypoxic requiring supplemental oxygen, is mildly tachypneic. She does appear disheveled and unkept. Sepsis work-up being performed. Will check CK and ammonia level as well. She is started on IV fluids. Patient's lab work shows her to have leukocytosis, with the elevated respiratory rate she started on antibiotics given the skin breakdown and possible infection. She started on Vanco and Zosyn. Her troponin did come back elevated and was repeated to be stable at 0.3. She did require lactulose suppository as she is not alert enough to take by mouth and her ammonia was very high. I believe this is with causing her encephalopathy. Her liver enzymes are elevated compared to her baseline. Her coags are within normal limits. She has been given IV fluids given the fact her CK was at 25,000. Prior to this coming back I did scan her chest that she was hypoxic. This showed groundglass opacities consistent with coronavirus which came back positive by PCR but the antigen was negative. No evidence of pulmonary embolism. CT scan abdomen/pelvis showed cirrhosis, portal hypertension with splenomegaly and varices. No acute infectious process noted. Not seen to have any abdominal tenderness for SBP. Her compartments seem very soft at this time. She does have a good DP pulse on the left side. Soft compartments of each other extremity as well. She started to drop her blood pressure despite getting fluids. Her map has remained above 65 at this point. She was started on BiPAP as she was having increased work of breathing. ABG was repeated which showed a elevated O2 and will be titrated down as possible. The initial hospitalist refused to accept the patient as we do not have GI coverage over the weekend with her elevated liver enzymes and history of cirrhosis. I contacted [facility] who is not accepting patients, [facility] who is not taking any Covid positive patients to the ICU. I then got a hold of hospitalist who did not feel the patient would require transfer just for GI consult as she has many other issues going on at this time in her care would be significantly delayed getting a bed there. I rediscussed the case with the new hospitalist who is still refusing the patient given the new elevation of the liver enzymes and possible liver failure. I did call and discussed the case with her next of kin which is a court appointed guardian. Patient is currently a full code and they would not be able to change this unless they discussed the case with the court. Patient is still very encephalopathic but does arouse to minor stimuli and attempts to answer questions but still very groggy. CT scan her head did not reveal any acute traumatic findings or bleed. I did contact [facility] and they are currently trying to get the patient a bed. Patient is being signed out due to end of shift. She is in critical condition at this time. - Critical Care Time Critical care time (excluding procedures): 75-104 minutes, Discussing w/Patient &/or Family/Network Coordinator, Discussing w/Consultants, Arranging Admission or Transfer, Performing Direct Patient Care at Bedside ED Disposition - Plan for ED Patient: Diagnosis: Hepatic encephalopathy, Rhabdomyolysis, Transaminitis, Severe sepsis, Pneumonia due to COVID-19 virus, Decubitus ulcers, Low blood pressure, Hyponatremia Referrals: Vikram Easton [Primary Care Provider] -
--- NOTE | 2020-09-05 15:13 | RAD_ITS ---
STUDY: X-RAY CHEST REASON FOR EXAM: Female, 59 years old. lives [facility] and found when didnt get meal tray or mail for 2 days, found laying on back with legs underneath. 86% ON RA. SOB TECHNIQUE: Single AP portable view of the chest. COMPARISON: Comparison is made with prior study dated 11/03/2018. FINDINGS: EKG electrodes are seen. The lungs are clear and expanded. There is no demonstrated pleural abnormality. There is mild cardiac enlargement. Normal mediastinum and daniela. Normal visualized pulmonary arteries. Normal visualized aortic arch and descending thoracic aorta. Normal visualized thoracic spine. Normal visualized ribs, clavicles, and shoulders. There is no demonstrated abnormality of the visualized soft tissue structures of the upper abdomen. RAD/Chest 1 View (Portable) IMPRESSION: Mild cardiomegaly. Electronically Signed: Allen Coelho, at 15:31 EST , Service support ,
[2020-09-05] MEDS: 0.9% Normal Saline 1,000 ML 999 ML IV ×2 (15:15→19:49)
[2020-09-05 15:26] LABS: Blood Gas Specimen Type VEN; O2 Delivery Device NRB; SITE R Brach; VBG BASE EXCESS -6 mmol/L (-1.0-3.5); VBG Bicarbonate 22 mmol/L (22-26); VBG PO2 61 mmHg (25-40); VBG SO2 85 % (50-70); VBG TCO2 24 mmol/L (23-33); VBG pCO2 53.7 mmHg (41-51); VBG pH 7.22 (7.32-7.42)
[2020-09-05 15:28] LABS: Color, Urine Yellow (Yellow); Glucose, Dipstick Normal (Normal); Ketone-Dipstick 5 mg/dl (Negative); Leukocyte Esterase-Dipstick 25 /ul (Negative); Nitrite-Dipstick Negative (Negative); Occult Blood-Urine 250 /ul (Negative); Protein-Dipstick 30 mg/dl (Negative); Urine Bilirubin Dipstick Negative (Negative); Urine Clarity Clear (Clear); Urine Urobilinogen 4 mg/dl (Normal); Urine pH 6.5 (5.0 - 8.0)
[2020-09-05 15:43] LABS: Red Blood Cells-Urine 0-5 SEEN /hpf (0-5); White Blood Cells 0-5 SEEN /hpf (0-5)
[2020-09-05 15:50] LABS: International Normalized Ratio 1.3; Prothrombin Time (Protime)PT. 15.4 SECONDS (11.7-14.9)
[2020-09-05 15:51] LABS: Partial Thromboplast Time 33.2 Seconds (24.1-36.2)
[2020-09-05 16:05] LABS: Alcohol, Blood (Medical)-Serum < 3.0 mg/dL
[2020-09-05 16:15] LABS: Albumin, Serum 2.8 g/dL (3.2-5.0); BUN 20 mg/dL (7-18); BUN/Creat Ratio 15.6 RATIO (10-20); Creatinine, Serum 1.28 mg/dL (0.55-1.02); EST Glomerular Filtration Rate 45 mL/min (>60); Est Glom Filt Rate - Afr Amer 55 mL/min (>60); Estimated Creatinine Clearance 41.37 ml/min; Globulin 4.2 g/dL (2.2-4.2); Glucose 126 mg/dL (74-106)
[2020-09-05 16:16] LABS: ALB/GLOB Ratio 0.7 RATIO (0.9-2.4); AST(SGOT) 1476 U/L (15-37); Alanine Aminotransfer ALT/SGPT 255 U/L (13-56); Alkaline Phosphatase 227 U/L (45-117); Anion Gap 14 (5-15); Calcium,Total 8.1 mg/dL (8.5-10.1); Chloride 86 mmol/L (98-107); Potassium 3.4 mmol/L (3.5-5.1); Sodium Level 123 mmol/L (136-145)
[2020-09-05 16:29] LABS: Lactic Acid 5.2 mmol/L (0.4-1.9)
--- NOTE | 2020-09-05 16:30 | CT_ITS ---
STUDY: CT BRAIN WITHOUT CONTRAST REASON FOR EXAM: Female, 59 years old. Altered mental status. Found down. RADIATION DOSAGE (If Supplied By Facility): CTDIvol = ( 44.99 ) mGy, DLP = ( 880.47 ) mGycm TECHNIQUE: Transaxial CT imaging of the brain was performed without administration of intravenous contrast material. Individualized dose optimization techniques were used for this CT. COMPARISON: 10/05/15 FINDINGS: There is no acute bleed or infarct. There are normal white matter tracts. The ventricles are normal in configuration. There is no hydrocephalus. The visualized paranasal sinuses are clear. The mastoid air cells are well aerated. There is no skull fracture. CT/Brain/Head without Contrast IMPRESSION: No acute intracranial abnormality. Electronically Signed: Zack Crisostomo, at 17:31 EST Tel , Service support ,
--- NOTE | 2020-09-05 16:30 | CT_ITS ---
STUDY: CTA CHEST REASON FOR EXAM: Female, 59 years old. AMS/down for unknown time. Hx of ovarian and breast cancer, alcohol abuse, htn, MO and schizophrenia RADIATION DOSAGE (If Supplied By Facility): CTDIvol = ( 18.30 ) mGy, DLP = ( 1949.29 ) mGycm TECHNIQUE: The examination was performed with the intravenous administration of IV 100mL Isovue-370. Post-processing of the angiographic images was performed, with multiplanar reformation and 3D reconstruction. Individualized dose optimization techniques were used for this CT. COMPARISON: None. FINDINGS: The study is limited by patient motion and by streak artifact due to the patient''s arms being at her sides. There is no central or segmental pulmonary was. The subsegmental branches are not well evaluated. There are mild patchy groundglass opacities noted in the lungs. There are no focal infiltrates. There are no pleural effusions. The central airways are patent. There is no pneumothorax. The heart and pericardium are within normal limits. There is no thoracic lymphadenopathy. There is no thoracic aortic aneurysm or dissection. There are no destructive osseous lesions. CT/CTA Chest W/WO Contrast IMPRESSION: Limited study. No central or segmental pulmonary embolus. No thoracic aortic aneurysm or dissection. Mild patchy ground glass opacities in the lungs. COVID Pneumonia should be excluded. Electronically Signed: Zack Crisostomo, at 17:41 EST Tel , Service support ,
--- NOTE | 2020-09-05 16:31 | CT_ITS ---
STUDY: CT ABDOMEN AND PELVIS WITH CONTRAST REASON FOR EXAM: Female, 59 years old. Altered mental status. Found down. RADIATION DOSAGE (If Supplied By Facility): CTDIvol = ( 18.30 ) mGy, DLP = ( 1949.29 ) mGycm TECHNIQUE: Transaxial images were obtained from the dome of the diaphragm to the symphysis pubis without oral contrast. 100 ml of ISOVUE-370 contrast was administered. Sagittal and coronal images were reconstructed. Individualized dose optimization techniques were used for this CT. COMPARISON: None. FINDINGS: This study is limited by patient motion and by streak artifact due to the patient''s arms being at her sides. There are calcified gallstones present. There is nodular in contour, consistent with cirrhosis. The liver is low in density, consistent with fatty infiltration. The spleen is enlarged. There are varices noted in the left upper quadrant. The pancreas is within normal limits. The adrenal glands are within normal limits. There are no renal or ureteral stones. There is no hydronephrosis. There are no focal renal lesions. Normal visualized stomach. There is no bowel obstruction or inflammation. The appendix is not visualized, but there are no findings to suggest acute appendicitis. The aorta is normal in caliber. There are atherosclerotic calcifications noted in the aorta. A DE [place] catheter in place. There is no abdominal or pelvic free air, free fluid, fluid collection or lymphadenopathy. There are no destructive osseous lesions. CT/Abdomen/Pelvis W IV Cont ONLY IMPRESSION: Limited study. Cirrhotic liver with fatty infiltration. Signs of portal hypertension, including splenomegaly and varices. No bowel obstruction or inflammation. Normal kidneys. No hydronephrosis. Gallstones. Electronically Signed: Zack Crisostomo, at 17:48 EST Tel , Service support ,
[2020-09-05 17:03] LABS: Absolute Lymphocyte Count 0.55 X10^3/uL (0.83-4.51); Absolute Neutrophil Count 14.7 X10^3/uL (2.0-7.7); Basophil# 0.04 X10^3/uL; Basophil% 0.2 % (0-1); Eosinophils% 7.7 % (0-5); Hemoglobin 15.1 g/dL (12.0-15.0); Lymphocyte # 0.55 X10^3/ul (4.0); Mean Corp Hgb Conc 36.8 g/dL (32-36); Mean Corpuscular Hgb 36.6 pg (27.0-32.0); Mean Corpuscular Volume 99.3 fL (81-99); Mean Platelet Vol. 9.7 fl (6.2-12.0); Monocyte# 1.16 X10^3/uL; Monocyte% 6.4 % (0-10); NRBC Flagged by Analyzer 0.1 % (0-5); Neutrophil # 14.65 X10^3/uL (2.7-7.7); Neutrophil % 81.2 % (47-70); POSITIVE DIFFERENTIAL YES; POSITIVE MORPHOLOGY YES; Platelet Count 150 K/mm3 (150-450); RBC Distribution Width CV 12.9 % (11.6-14.6); RBC Distribution Width SD 45.8 fl (35.1-43.9); Red Blood Count 4.13 M/mm3 (4.2-5.4); White Blood Count 18.1 K/mm3 (4.4-11.0)
[2020-09-05 17:11] LABS: Differential Indicated SCAN CRITERIA MET
[2020-09-05] MEDS: 0.9% Normal Saline 1,000 ML 250 ML IV (17:25)
--- NOTE | 2020-09-05 17:28 | ED.RN ---
policeman in after being called from [facility]. incident of past hx gone over and concern of pt time frame of being down and noone checking on her.
--- NOTE | 2020-09-05 17:29 | ED.RN ---
dr ruiz in and ordered pt to be on bipap d.t increased work of breathing. with with resp 25 and abd breathing obs.
--- NOTE | 2020-09-05 17:30 | ED.RN ---
THIS NURSE AND OFFICER MIL IN THE ROOM DISCUSSING CONCERNS OVER PT CARE AND CONDITION. PT GAVE VERBAL CONSENT FOR OFFICER MIL TO OBTAIN PICTURES OF HER INJURIES AND WOUNDS. PT AXOX3.
[2020-09-05 17:54] LABS: Platelet Estimate ADEQUATE (ADEQ); Toxic Granulation 1+
[2020-09-05 18:00] LABS: CPK Total, Creatine Kinase 24967 U/L (26-192)
--- NOTE | 2020-09-05 18:20 | ED.RN ---
pt on 100% bipap and resp 27 and cps in for repeat abg, iv ant up and running
--- NOTE | 2020-09-05 18:35 | CPS ---
HIGH CRITICAL PAO2 REPORTED TO DR. ZAPATA. No new orders given.
[2020-09-05 18:46] LABS: Allen Test Positive; Base Excess -6 mmol/L (-2 to +2); Bicarbonate 21.3 mmol/L (22-26); Blood Gas Specimen Type ART; FI02 100; Mode BiLevel; O2 Delivery Device BiPAP; PO2 317 mmHG (75-100); RR 12; SITE L Radial; SO2 100 % (95-99); Total Carbon Dioxide 23 mmol/L; pH 7.27 (7.35-7.45)
--- NOTE | 2020-09-05 19:10 | ED.RN ---
resp still 35-40/min. repeat abg back and dr. ruiz looked at them. iv fluid bolus running for low bp. repeat troponin drawn
[2020-09-05 19:16] LABS: Reflex Lactate? Y
--- NOTE | 2020-09-05 19:58 | CPS ---
PATIENT WAS 100% ON 1.00. Patient weaned to .90.
[2020-09-05 20:19] LABS: Lactic Acid 3.6 mmol/L (0.4-1.9)
[2020-09-05 20:33] LABS: Probe Check PASS; Specimen Processing Control PASS
--- NOTE | 2020-09-05 21:43 | ED.RN ---
NOTIFIED DR ZAPATA THAT PT BP IS 76/61 MAP OF 66 AND STILL BREATHING AT 35 RESPIRATIONS PER MINUTE. WOULD LIKE NOTIFIED IF MAP <65. WILL CONTINUE TO MONITOR
[2020-09-06] VITALS (12 sets, daily range): BP systolic 38–113; BP diastolic 18–82; PULSE 86–100; RESP 12–40; TEMP 37.2–37.7; O2SAT 95–99
--- NOTE | 2020-09-06 02:15 | NURSING ---
ACCEPTED TO [facility] BY DR. DISLA GOING TO THE ICU BED 1031 REPORT
--- NOTE | 2020-09-06 02:26 | ED.RN ---
DR. PINA UPDATED ON PT'S BP OF 91/37, MAP 46. NO NEW ORDERS RCVD AT THIS TIME. AWAITING [facility] FOR TRANSPORT.
--- NOTE | 2020-09-06 02:38 | ED.RN ---
patient taken off bipap at this time to see if she could tolerate nrb for transport
--- NOTE | 2020-09-06 02:45 | ED.RN ---
patient maintaining oxygen level at this time, patient hypotensive at this time, Dr. Zamora at bedside, decision to intubate at this time for transport
[2020-09-06] MEDS: Ketamine HCl 500 MG/5 ML Vial 116 MG IV (03:00)
[2020-09-06] MEDS: 0.9% Normal Saline 1,000 ML 999 ML IV (03:16)
[2020-09-06] MEDS: Lactulose 20 GM/30 ML UDC 220 GM NG (03:28)
--- NOTE | 2020-09-06 03:30 | RAD_ITS ---
STUDY: X-RAY CHEST REASON FOR EXAM: Female, 59 years old. OG TUBE PLACEMENT. PT UNABLE TO TAKE DEEP INSPIRATION FOR XRAY. ALT LOC. TECHNIQUE: Single AP portable view of the chest. COMPARISON: 09/05/2020 FINDINGS: Endotracheal tube is seen its tip is 4 cm superior to the zeinab. An OG tube is seen its tip is below the diaphragm is in good position. There is partial atelectasis in the left lung base. There is no demonstrated pleural abnormality. Normal size heart. Normal mediastinum and daniela. Normal visualized pulmonary arteries. Normal visualized aortic arch and descending thoracic aorta. Normal visualized thoracic spine. Normal visualized ribs, clavicles, and shoulders. There is no demonstrated abnormality of the visualized soft tissue structures of the upper abdomen. RAD/Chest 1 View (Portable) IMPRESSION: An OG tube is seen its tip is below the diaphragm is in good position. There is partial atelectasis in the left lung base. Electronically Signed: Chetna Tavera, at 4:28 EST Tel , Service support ,
--- NOTE | 2020-09-06 04:21 | CPS ---
rt called to er 12 for intubation setup. Er Physician intubated patient with 7.5 et tube at the 25 cm serena at the lip. Bilateral breath sounds noted and color change indicated on ezcap. Patient manually ventilated with 15 lpm via ppv times 15 minutes until transport arrived. Patient was 93% on 15 lpm with a hr of 86 bpm. Transport team assumed control of airway. No adverse reaction noted.
--- NOTE | 2020-09-06 10:10 | ED.RN ---
CALLED [facility] AND GAVE CULTURE RESULTS TO NURSE
== END 2020-09-06 04:10 | disposition short-term general hospital (02) ==
LOC: ED 15:06
PROVIDERS: Emergency Provider Emergency Medicine
DX: A41.89 Other specified sepsis (principal); R65.20 Severe sepsis without septic shock; U07.1 COVID-19; J12.89 Other viral pneumonia; R09.02 Hypoxemia; M62.82 Rhabdomyolysis; K72.90 Hepatic failure, unspecified without coma; K74.60 Unspecified cirrhosis of liver; E87.1 Hypo-osmolality and hyponatremia; I50.9 Heart failure, unspecified; L89.152 Pressure ulcer of sacral region, stage 2; L97.529 Non-pressure chronic ulcer of other part of left foot with unspecified severity; F20.9 Schizophrenia, unspecified; F17.200 Nicotine dependence, unspecified, uncomplicated; Z79.899 Other long term (current) drug therapy
CPT/HCPCS: 31500; 36600; 70450; 71045; 71275; 74177; 80053; 80320; 81001; 82140; 82550; 82803; 83605; 84484; 85025; 85610; 85730; 87040; 87086; 87088; 87149; 87426; 87635; 93005; 94002; 96361; 96365; 96366; 96367; 96375; 99251; 99285; J7030; J7040; J7050; Q9967; A4216; G0463; G0480; U0002